=== PATIENT | male | born 1995 | race Caucasian/White ===

== ENCOUNTER 2016-05-09 14:17 | Inpatient (IN) | payer OTHER ==
[2016-05-09 15:54] VITALS: BMI 24.4
--- NOTE | 2016-05-09 16:29 | HP ---
Admission ROS [facility] - [facility] Chief Complaint: i want to go to rehab Allergies/Adverse Reactions: Allergies Allergy/AdvReac Type Severity Reaction Status Date / Time diphenhydramine HCl Allergy Severe Swelling Verified 05/09/16 16:18 [From Benadryl] Penicillins Allergy Severe Rash Verified 05/09/16 16:18 History of Present Illness: 20 years old male with long history of opiate nicotine dependence, history of eczema denies mental illness, longest sobriety months is admitted to rehab Exam Limitations: No Limitations - Ebola screening Have you traveled outside of the country in the last 21 days: No Have you had contact with anyone from an Ebola affected area: No Have you been sick,other than usual withdrawal symptoms: No Do you have a fever: No - Review of Systems Constitutional: Weight Stable EENT: reports: No Symptoms Reported Respiratory: reports: No Symptoms reported Cardiac: reports: No Symptoms Reported GI: reports: No Symptoms Reported : reports: No Symptoms Reported Musculoskeletal: reports: No Symptoms Reported Integumentary: reports: No Symptoms Reported Neuro: reports: No Symptoms reported Endocrine: reports: No Symptoms Reported Hematology: reports: No Symptoms Reported Psychiatric: reports: Judgement Intact, Mood/Affect Appropiate, Orientated x3 Other Systems: Reviewed and Negative Patient History - Patient Medical History Hx Anemia: No Hx Asthma: Yes (CHILDHOOD ASTHMA) Hx Chronic Obstructive Pulmonary Disease (COPD): No Hx Cancer: No Hx Cardiac Disorders: No Hx Congestive Heart Failure: No Hx Hypertension: No Hx Hypercholesterolemia: No Hx Pacemaker: No HX Cerebrovascular Accident: No Hx Seizures: No Hx Dementia: No Hx Diabetes: No Hx Gastrointestinal Disorders: No Hx Liver Disease: No Hx Genitourinary Disorders: No Hx Sexually Transmitted Disorders: No Hx Renal Disease (ESRD): No Hx Thyroid Disease: No Hx Human Immunodeficiency Virus (HIV): No (12/21 LAST NEGATIVE) Hx Hepatitis C: No Hx Depression: No Hx Suicide Attempt: No Hx Bipolar Disorder: No Hx Schizophrenia: No - Patient Surgical History Past Surgical History: No - PPD History Previous Implant?: Yes Documented Results: Negative w/proof Implanted On Prior [facility] Admission?: Yes Date: 03/06/16 PPD to be Administered?: No - Smoking Cessation Smoking history: Current every day smoker Have you smoked in the past 12 months: Yes Aproximately how many cigarettes per day: 20 Cigars Per Day: 0 Hx Chewing Tobacco Use: No Initiated information on smoking cessation: Yes 'Breaking Loose' booklet given: 05/09/16 - Substance & Tx. History Hx Alcohol Use: No Hx Substance Use: Yes Substance Use Type: Opiates Hx Substance Use Treatment: Yes - Substances Abused Heroin Route: Inhalation Frequency: Daily Amount used: 10 bags Age of first use: 19 Date of Last Use: 04/06/16 Family Disease History - Family Disease History Family Disease History: Other: Father (hepatitis c treated) Admission Physical Exam [facility] - Vital Signs Vital Signs: Vital Signs - 24 hr 05/09/16 15:52 Temperature 97.6 F Pulse Rate 95 H Respiratory 18 Rate Blood Pressure 136/72 - Physical General Appearance: Yes: Nourished, Appropriately Dressed, Tremorous, Irritable , Sweating, Anxious HEENTM: Yes: Hearing grossly Normal, Normal ENT Inspection, Normocephalic, Normal Voice Respiratory: Yes: Chest Non-Tender, Lungs Clear, Normal Breath Sounds, No Respiratory Distress, No Accessory Muscle Use Neck: Yes: Supple, Trachea in good position Breast: Yes: Breasts Symetrical Cardiology: Yes: Regular Rhythm, Regular Rate, S1, S2 Abdominal: Yes: Non Tender, Soft Genitourinary: Yes: Within Normal Limits Back: Yes: Normal Inspection Musculoskeletal: Yes: full range of Motion, Gait Steady Extremities: Yes: Normal Range of Motion, Non-Tender, Other (feet) Neurological: Yes: Fully Oriented, Alert, Motor Strength 5/5, Normal Mood/Affect , Normal Response Integumentary: Yes: Warm Lymphatic: Yes: Within Normal Limits - Diagnostic (1) Asthma Current Visit: Yes Status: Chronic Qualifiers: Asthma severity: mild intermittent Asthma complication type: uncomplicated Qualified Code(s): J45.20 - Mild intermittent asthma, uncomplicated Comment: last ventolin "months" ago (2) Nicotine dependence Current Visit: Yes Status: Acute Qualifiers: Nicotine product type: cigarettes Substance use status: in withdrawal Qualified Code(s): F17.213 - Nicotine dependence, cigarettes, with withdrawal (3) Opioid dependence with withdrawal Current Visit: Yes Status: Acute (4) Eczema Current Visit: Yes Status: Chronic Qualifiers: Eczema type: other Qualified Code(s): L30.8 - Other specified dermatitis Comment: feet Cleared for Admission [facility] - Detox or Rehab [facility] Level of Care: Observation Bed Claeared for Rehab Admission: Yes [facility] Breath Alcohol Content Breath Alcohol Content: 0 Urine Drug Screen - Results Drug Screen Negative: Yes
[2016-05-09] MEDS ORDERED: P-EPHED 60MG/TRIPROLIDI 2.5MG TABLET PO PRN (16:31)
[2016-05-09] MEDS ORDERED: LOPERAMIDE HCL 2 MG CAPSULE PO PRN (16:31)
[2016-05-09] MEDS ORDERED: MAGNESIUM HYDROX 2400MG/30ML ORAL SUSPENSION 30 ML CUP PO PRN (16:31)
[2016-05-09] MEDS ORDERED: MAG HYDROX/AL HYDROX/SIMETH 30 ML UNIT-DOSE CUP PO PRN (16:31)
[2016-05-09] MEDS ORDERED: NICOTINE POLACRILEX 2 MG GUM BUC PRN (16:31)
[2016-05-09] MEDS ORDERED: MAGNESIUM CITRATE 300 ML BOTTLE PO PRN (16:31)
[2016-05-09] MEDS ORDERED: COLLOIDAL OATMEAL 1 BAR EACH TP PRN (16:36)
[2016-05-09] MEDS ORDERED: ALBUTEROL SO4 6.7 GM HFA INHALER IH PRN (16:44)
--- NOTE | 2016-05-09 20:19 | PN ---
S Progress Note Note: received nurse call requests vistaril for anxiousness patient is allergic to Benadryl, may have negative consequence patient can be seen by psychiatrist continue rehab
[2016-05-09 20:39] LABS: URINE APPEARANCE CLEAR; URINE BILIRUBIN NEGATIVE (NEGATIVE); URINE BLOOD NEGATIVE (NEGATIVE); URINE COLOR LTYELLOW; URINE GLUCOSE (UA) NEGATIVE (NEGATIVE); URINE KETONE NEGATIVE (NEGATIVE); URINE LEUK ESTERASE NEGATIVE (NEGATIVE); URINE NITRITE NEGATIVE (NEGATIVE); URINE PROTEIN NEGATIVE (NEGATIVE); URINE UROBILINOGEN NEGATIVE E.U./dl (0.2-1.0)
--- NOTE | 2016-05-09 20:39 | PN ---
S Progress Note Note: received pharmacist call patient allergic to Benadryl can not have ephed discontinue ephed continue rehab
[2016-05-09] MEDS: THIAMINE HCL 100 MG TABLET (FP) PO SCH (21:20)
[2016-05-09] MEDS: MINERAL OIL/PETROLAT/WATER TOPICAL CREAM 113 GM JAR TP SCH (21:21)
[2016-05-09] MEDS ORDERED: hydrOXYzine PAMOATE 50 MG CAPSULE (FP) PO ONE (21:30)
--- NOTE | 2016-05-09 21:30 | PN ---
S Progress Note Note: INFORMED PT REQUESTING VISTARIL FOR ANXIETY, RESTLESSNESS. STATES HAS TAKEN BEFORE W/O RXN. NOTED ON LAST ADMISSION PT PRESCRIBED BOTH BENADRYL AND VISTARIL DESPITE HIS CLAIMS THAT HE IS ALLERGIC TO BENADRYL NOW. WILL GIVEN VISTARIL 50 MG X 1 DOSE NOW.
[2016-05-10] MEDS: hydrOXYzine PAMOATE 50 MG CAPSULE (FP) PO PRN (08:27)
[2016-05-10] MEDS: NICOTINE 21 MG/24 HOURS TOPICAL PATCH TD SCH (09:49)
[2016-05-10] MEDS: PRENATAL VITAMINS W/ FOLIC ACID TABLET (FP) PO SCH (09:49)
[2016-05-10 13:33] LABS: MCHC 32.8 g/dl (32.0-35.9); MEAN CELL VOLUME 91.2 fl (80-96); MEAN PLT VOLUME 9.7 fl (7.5-11.1); PLATELET COUNT 190 K/MM3 (134-434); RDW 13.9 % (11.9-15.9); WHITE BLOOD COUNT 6.7 K/mm3 (4.0-10.0)
[2016-05-10 13:57] LABS: ALBUMIN 4.1 g/dl (3.4-5.0); ANION GAP 11 (8-16); CO2 26 mmol/L (21-32); GLUCOSE,RANDOM 76 mg/dL (74-106); SGOT/AST 38 U/L (15-37); SGPT/ALT 43 U/L (12-78)
[2016-05-10 13:59] LABS: ALK PHOS 89 U/L (45-117); BILIRUBIN,TOTAL 0.2 mg/dL (0.2-1.0); CALCIUM 9.8 mg/dL (8.5-10.1); CREATININE 0.8 mg/dL (0.7-1.3); TOT PROT 7.2 g/dl (6.4-8.2)
--- NOTE | 2016-05-10 14:16 | HP ---
Psychiatrist Admission - Data Date of interview: 05/10/16 Admission source: [facility]/[address] Identifying data: This is the first 5N inpatient rehabilitation admission for this 20 year old single male residing with his parents in [place]. Medical History: reports a good physical health Psychiatric History: eczema, smokes cigarettes 1 PPD. Physical/Sexual Abuse/Trauma History: denies history of sexual,physical and verbal abuse. Vital Signs: Vital Signs - 24 hr 05/09/16 05/09/16 05/10/16 15:52 18:15 00:49 Temperature 97.6 F 97.1 F L Pulse Rate 95 H 95 H Respiratory 18 18 18 Rate Blood Pressure 136/72 128/82 05/10/16 05/10/16 03:30 06:58 Temperature 97.4 F L Pulse Rate 66 Respiratory 18 16 Rate Blood Pressure 138/75 Allergies/Adverse Reactions: Allergies Allergy/AdvReac Type Severity Reaction Status Date / Time diphenhydramine HCl Allergy Severe Swelling Verified 05/09/16 16:18 [From Benadryl] Penicillins Allergy Severe Rash Verified 05/09/16 16:18 Date of last physical exam: 05/09/16 Concur with the findings of this exam: Yes - Substance Abuse/Tx History Hx Alcohol Use: No Substance Use Type: Heroin, Opiates (oxycodone, last use 03/22) Hx Substance Use Treatment: Yes (was in [facility] ) - Admission Criteria Previous failed treatment: Yes Poor recovery environment: Yes Comorbidities: No Lacks judgement: Yes Mental Status Exam - Mental Status Exam Alert and Oriented to: Time, Place, Person Cognitive Function: Grossly Intact Patient Appearance: Well Groomed Mood: Anxious Affect: Appropriate, Mood Congruent Patient Behavior: Appropriate, Cooperative Speech Pattern: Clear, Appropriate Voice Loudness: Normal Thought Process: Intact, Goal Oriented Thought Disorder: Not Present Hallucinations: Denies Suicidal Ideation: Denies Homicidal Ideation: Denies Insight/Judgement: Fair Sleep: Fair Appetite: Fair Muscle strength/Tone: Normal Gait/Station: Normal Psychiatric Findings - Problem List ([place] 1, 2,3) (1) Nicotine dependence Current Visit: Yes Status: Acute Qualifiers: Nicotine product type: cigarettes Substance use status: in withdrawal Qualified Code(s): F17.213 - Nicotine dependence, cigarettes, with withdrawal (2) Eczema Current Visit: Yes Status: Chronic Qualifiers: Eczema type: other Qualified Code(s): L30.8 - Other specified dermatitis Comment: feet (3) Opioid dependence Current Visit: Yes Status: Acute - Initial Treatment Plan Initial Treatment Plan: will monitor progress as needed.
[2016-05-10] MEDS: THIAMINE HCL 100 MG TABLET (FP) PO SCH (21:32)
[2016-05-10] MEDS: MINERAL OIL/PETROLAT/WATER TOPICAL CREAM 113 GM JAR TP SCH (21:32)
[2016-05-11] MEDS: PRENATAL VITAMINS W/ FOLIC ACID TABLET (FP) PO SCH (09:35)
[2016-05-11] MEDS: NICOTINE 21 MG/24 HOURS TOPICAL PATCH TD SCH (09:35)
[2016-05-11] MEDS: MINERAL OIL/PETROLAT/WATER TOPICAL CREAM 113 GM JAR TP SCH (21:47)
[2016-05-11] MEDS: THIAMINE HCL 100 MG TABLET (FP) PO SCH (21:48)
[2016-05-12] MEDS: NICOTINE 21 MG/24 HOURS TOPICAL PATCH TD SCH (10:01)
[2016-05-12] MEDS: PRENATAL VITAMINS W/ FOLIC ACID TABLET (FP) PO SCH (10:01)
[2016-05-12] MEDS: hydrOXYzine PAMOATE 50 MG CAPSULE (FP) PO PRN ×3 (10:04→23:43)
[2016-05-12] MEDS: IBUPROFEN 400 MG TABLET (FP) PO PRN (10:06)
[2016-05-12] MEDS: MINERAL OIL/PETROLAT/WATER TOPICAL CREAM 113 GM JAR TP SCH (21:24)
[2016-05-12] MEDS: THIAMINE HCL 100 MG TABLET (FP) PO SCH (21:24)
[2016-05-12] MEDS: ACETAMINOPHEN 325 MG TABLET (FP) PO PRN (21:24)
[2016-05-13] MEDS: PRENATAL VITAMINS W/ FOLIC ACID TABLET (FP) PO SCH (09:52)
[2016-05-13] MEDS: NICOTINE 21 MG/24 HOURS TOPICAL PATCH TD SCH (09:53)
--- NOTE | 2016-05-13 14:11 | EKG ---
Test Reason : Blood Pressure : / mmHG Vent. Rate : 066 BPM Atrial Rate : 066 BPM P-R Int : 140 ms QRS Dur : 088 ms QT Int : 406 ms P-R-T Axes : 043 060 047 degrees QTc Int : 425 ms NORMAL SINUS RHYTHM WITH SINUS ARRHYTHMIA NORMAL ECG NO PREVIOUS ECGS AVAILABLE Confirmed by ALLISON CONNELL MD ([id number]) on 05/13/2016 2:10:53 PM Referred By: Colleen Huffman Confirmed By:ALLISON CONNELL MD
[2016-05-13] MEDS: THIAMINE HCL 100 MG TABLET (FP) PO SCH (21:26)
[2016-05-13] MEDS: hydrOXYzine PAMOATE 50 MG CAPSULE (FP) PO PRN (21:27)
[2016-05-13] MEDS: MINERAL OIL/PETROLAT/WATER TOPICAL CREAM 113 GM JAR TP SCH (22:20)
[2016-05-14] MEDS: hydrOXYzine PAMOATE 50 MG CAPSULE (FP) PO PRN (06:10)
[2016-05-14] MEDS: NICOTINE 21 MG/24 HOURS TOPICAL PATCH TD SCH (09:56)
[2016-05-14] MEDS: PRENATAL VITAMINS W/ FOLIC ACID TABLET (FP) PO SCH (09:56)
[2016-05-14] MEDS: MINERAL OIL/PETROLAT/WATER TOPICAL CREAM 113 GM JAR TP SCH (21:39)
[2016-05-14] MEDS: THIAMINE HCL 100 MG TABLET (FP) PO SCH (21:39)
[2016-05-15] MEDS: NICOTINE 21 MG/24 HOURS TOPICAL PATCH TD SCH (09:56)
[2016-05-15] MEDS: PRENATAL VITAMINS W/ FOLIC ACID TABLET (FP) PO SCH (09:57)
[2016-05-15] MEDS: hydrOXYzine PAMOATE 50 MG CAPSULE (FP) PO PRN (18:48)
[2016-05-15] MEDS: THIAMINE HCL 100 MG TABLET (FP) PO SCH (21:39)
[2016-05-15] MEDS: MINERAL OIL/PETROLAT/WATER TOPICAL CREAM 113 GM JAR TP SCH (21:40)
[2016-05-16] MEDS: PRENATAL VITAMINS W/ FOLIC ACID TABLET (FP) PO SCH (09:26)
[2016-05-16] MEDS: NICOTINE 21 MG/24 HOURS TOPICAL PATCH TD SCH (09:26)
[2016-05-16] MEDS: hydrOXYzine PAMOATE 50 MG CAPSULE (FP) PO PRN ×2 (09:27→21:19)
[2016-05-16] MEDS: THIAMINE HCL 100 MG TABLET (FP) PO SCH (21:18)
[2016-05-16] MEDS: MINERAL OIL/PETROLAT/WATER TOPICAL CREAM 113 GM JAR TP SCH (21:19)
[2016-05-17] MEDS: hydrOXYzine PAMOATE 50 MG CAPSULE (FP) PO PRN ×2 (06:32→12:34)
[2016-05-17] MEDS: NICOTINE 21 MG/24 HOURS TOPICAL PATCH TD SCH (09:37)
[2016-05-17] MEDS: PRENATAL VITAMINS W/ FOLIC ACID TABLET (FP) PO SCH (09:37)
[2016-05-17] MEDS: THIAMINE HCL 100 MG TABLET (FP) PO SCH (21:43)
[2016-05-17] MEDS: MINERAL OIL/PETROLAT/WATER TOPICAL CREAM 113 GM JAR TP SCH (21:43)
[2016-05-18] MEDS: MENTHOL/PHENOL 1 EACH UD MM PRN ×3 (06:37→17:49)
[2016-05-18] MEDS: guaiFENesin/D-METHORPHAN HB 10 ML UNIT-DOSE CUPS PO PRN ×2 (06:38→12:43)
[2016-05-18] MEDS: hydrOXYzine PAMOATE 50 MG CAPSULE (FP) PO PRN ×3 (08:30→23:31)
[2016-05-18] MEDS: ACETAMINOPHEN 325 MG TABLET (FP) PO PRN (08:30)
[2016-05-18] MEDS: PRENATAL VITAMINS W/ FOLIC ACID TABLET (FP) PO SCH (09:42)
[2016-05-18] MEDS: NICOTINE 21 MG/24 HOURS TOPICAL PATCH TD SCH (09:42)
[2016-05-18] MEDS: IBUPROFEN 400 MG TABLET (FP) PO PRN (17:47)
[2016-05-18] MEDS: THIAMINE HCL 100 MG TABLET (FP) PO SCH (21:47)
[2016-05-18] MEDS: MINERAL OIL/PETROLAT/WATER TOPICAL CREAM 113 GM JAR TP SCH (21:47)
[2016-05-19] MEDS: guaiFENesin/D-METHORPHAN HB 10 ML UNIT-DOSE CUPS PO PRN (06:45)
[2016-05-19] MEDS: hydrOXYzine PAMOATE 50 MG CAPSULE (FP) PO PRN ×3 (06:45→21:34)
[2016-05-19] MEDS: MENTHOL/PHENOL 1 EACH UD MM PRN (06:46)
[2016-05-19] MEDS: PRENATAL VITAMINS W/ FOLIC ACID TABLET (FP) PO SCH (09:39)
[2016-05-19] MEDS: NICOTINE 21 MG/24 HOURS TOPICAL PATCH TD SCH (09:39)
[2016-05-19] MEDS: ACETAMINOPHEN 325 MG TABLET (FP) PO PRN (09:41)
[2016-05-19] MEDS: THIAMINE HCL 100 MG TABLET (FP) PO SCH (21:34)
[2016-05-19] MEDS: MINERAL OIL/PETROLAT/WATER TOPICAL CREAM 113 GM JAR TP SCH (21:37)
[2016-05-20] MEDS: NICOTINE 21 MG/24 HOURS TOPICAL PATCH TD SCH (09:32)
[2016-05-20] MEDS: PRENATAL VITAMINS W/ FOLIC ACID TABLET (FP) PO SCH (09:32)
[2016-05-20] MEDS ORDERED: FUROSEMIDE 40 MG TABLET (FP) PO ONE (13:45)
[2016-05-20] MEDS: THIAMINE HCL 100 MG TABLET (FP) PO SCH (21:53)
[2016-05-20] MEDS: MINERAL OIL/PETROLAT/WATER TOPICAL CREAM 113 GM JAR TP SCH (21:53)
[2016-05-21] MEDS: PRENATAL VITAMINS W/ FOLIC ACID TABLET (FP) PO SCH (09:46)
[2016-05-21] MEDS: FUROSEMIDE 20 MG TABLET (FP) PO SCH (09:46)
[2016-05-21] MEDS: NICOTINE 21 MG/24 HOURS TOPICAL PATCH TD SCH (09:47)
[2016-05-21] MEDS ORDERED: FUROSEMIDE 20 MG TABLET (FP) PO SCH (10:00)
[2016-05-21] MEDS: THIAMINE HCL 100 MG TABLET (FP) PO SCH (21:08)
[2016-05-21] MEDS: MINERAL OIL/PETROLAT/WATER TOPICAL CREAM 113 GM JAR TP SCH (21:09)
[2016-05-21] MEDS: hydrOXYzine PAMOATE 50 MG CAPSULE (FP) PO PRN (21:09)
[2016-05-22] MEDS: PRENATAL VITAMINS W/ FOLIC ACID TABLET (FP) PO SCH (09:39)
[2016-05-22] MEDS: NICOTINE 21 MG/24 HOURS TOPICAL PATCH TD SCH (09:39)
[2016-05-22] MEDS: FUROSEMIDE 20 MG TABLET (FP) PO SCH (09:41)
[2016-05-22] MEDS: hydrOXYzine PAMOATE 50 MG CAPSULE (FP) PO PRN ×2 (09:42→21:26)
[2016-05-22] MEDS: THIAMINE HCL 100 MG TABLET (FP) PO SCH (21:26)
[2016-05-22] MEDS: MINERAL OIL/PETROLAT/WATER TOPICAL CREAM 113 GM JAR TP SCH (21:26)
[2016-05-23] MEDS: PRENATAL VITAMINS W/ FOLIC ACID TABLET (FP) PO SCH (09:39)
[2016-05-23] MEDS: FUROSEMIDE 20 MG TABLET (FP) PO SCH (09:39)
[2016-05-23] MEDS: NICOTINE 21 MG/24 HOURS TOPICAL PATCH TD SCH (09:39)
[2016-05-23] MEDS: hydrOXYzine PAMOATE 50 MG CAPSULE (FP) PO PRN ×2 (09:40→21:15)
[2016-05-23] MEDS: MINERAL OIL/PETROLAT/WATER TOPICAL CREAM 113 GM JAR TP SCH (21:15)
[2016-05-23] MEDS: THIAMINE HCL 100 MG TABLET (FP) PO SCH (21:15)
[2016-05-24] MEDS: hydrOXYzine PAMOATE 50 MG CAPSULE (FP) PO PRN ×3 (06:03→20:48)
[2016-05-24] MEDS: PRENATAL VITAMINS W/ FOLIC ACID TABLET (FP) PO SCH (09:33)
[2016-05-24] MEDS: NICOTINE 21 MG/24 HOURS TOPICAL PATCH TD SCH (09:34)
[2016-05-24] MEDS: FUROSEMIDE 20 MG TABLET (FP) PO SCH (09:34)
[2016-05-24] MEDS ORDERED: HYDROCORTISONE VALERATE 0.2% CREAM 15 G TUBE TP PRN (11:34)
--- NOTE | 2016-05-24 11:36 | PN ---
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
[2016-05-24] MEDS: THIAMINE HCL 100 MG TABLET (FP) PO SCH (22:05)
[2016-05-24] MEDS: HYDROCORTISONE 1% TOPICAL CREAM 30 GM TUBE TP SCH (22:05)
[2016-05-24] MEDS: MINERAL OIL/PETROLAT/WATER TOPICAL CREAM 113 GM JAR TP SCH (22:05)
[2016-05-25] MEDS: PRENATAL VITAMINS W/ FOLIC ACID TABLET (FP) PO SCH (09:46)
[2016-05-25] MEDS: HYDROCORTISONE 1% TOPICAL CREAM 30 GM TUBE TP SCH ×2 (09:47→21:38)
[2016-05-25] MEDS: FUROSEMIDE 20 MG TABLET (FP) PO SCH (09:47)
[2016-05-25] MEDS: NICOTINE 21 MG/24 HOURS TOPICAL PATCH TD SCH (09:47)
[2016-05-25] MEDS: hydrOXYzine PAMOATE 50 MG CAPSULE (FP) PO PRN (09:48)
[2016-05-25] MEDS: THIAMINE HCL 100 MG TABLET (FP) PO SCH (21:38)
[2016-05-25] MEDS: MINERAL OIL/PETROLAT/WATER TOPICAL CREAM 113 GM JAR TP SCH (21:38)
[2016-05-26] MEDS: PRENATAL VITAMINS W/ FOLIC ACID TABLET (FP) PO SCH (09:58)
[2016-05-26] MEDS: NICOTINE 21 MG/24 HOURS TOPICAL PATCH TD SCH (09:58)
[2016-05-26] MEDS: hydrOXYzine PAMOATE 50 MG CAPSULE (FP) PO PRN ×2 (09:58→22:33)
[2016-05-26] MEDS: FUROSEMIDE 20 MG TABLET (FP) PO SCH (09:59)
[2016-05-26] MEDS: HYDROCORTISONE 1% TOPICAL CREAM 30 GM TUBE TP SCH ×2 (09:59→21:39)
[2016-05-26] MEDS: MINERAL OIL/PETROLAT/WATER TOPICAL CREAM 113 GM JAR TP SCH (21:38)
[2016-05-26] MEDS: THIAMINE HCL 100 MG TABLET (FP) PO SCH (21:39)
[2016-05-27] MEDS: HYDROCORTISONE 1% TOPICAL CREAM 30 GM TUBE TP SCH ×2 (09:31→22:08)
[2016-05-27] MEDS: FUROSEMIDE 20 MG TABLET (FP) PO SCH (09:31)
[2016-05-27] MEDS: PRENATAL VITAMINS W/ FOLIC ACID TABLET (FP) PO SCH (09:31)
[2016-05-27] MEDS: hydrOXYzine PAMOATE 50 MG CAPSULE (FP) PO PRN ×2 (09:32→22:07)
[2016-05-27] MEDS: NICOTINE 21 MG/24 HOURS TOPICAL PATCH TD SCH (09:32)
[2016-05-27] MEDS: THIAMINE HCL 100 MG TABLET (FP) PO SCH (22:07)
[2016-05-27] MEDS: MINERAL OIL/PETROLAT/WATER TOPICAL CREAM 113 GM JAR TP SCH (22:08)
[2016-05-28] MEDS: PRENATAL VITAMINS W/ FOLIC ACID TABLET (FP) PO SCH (09:33)
[2016-05-28] MEDS: hydrOXYzine PAMOATE 50 MG CAPSULE (FP) PO PRN (09:34)
[2016-05-28] MEDS: HYDROCORTISONE 1% TOPICAL CREAM 30 GM TUBE TP SCH ×2 (09:34→21:48)
[2016-05-28] MEDS: FUROSEMIDE 20 MG TABLET (FP) PO SCH (09:34)
[2016-05-28] MEDS: NICOTINE 21 MG/24 HOURS TOPICAL PATCH TD SCH (09:35)
[2016-05-28] MEDS: MINERAL OIL/PETROLAT/WATER TOPICAL CREAM 113 GM JAR TP SCH (21:48)
[2016-05-28] MEDS: THIAMINE HCL 100 MG TABLET (FP) PO SCH (21:48)
[2016-05-29] MEDS: FUROSEMIDE 20 MG TABLET (FP) PO SCH (09:39)
[2016-05-29] MEDS: PRENATAL VITAMINS W/ FOLIC ACID TABLET (FP) PO SCH (09:39)
[2016-05-29] MEDS: HYDROCORTISONE 1% TOPICAL CREAM 30 GM TUBE TP SCH ×2 (09:40→21:48)
[2016-05-29] MEDS: NICOTINE 21 MG/24 HOURS TOPICAL PATCH TD SCH (09:40)
[2016-05-29] MEDS: hydrOXYzine PAMOATE 50 MG CAPSULE (FP) PO PRN ×2 (09:41→22:11)
--- NOTE | 2016-05-29 14:34 | PN ---
Psychiatric Progress Note Vital Signs: Vital Signs Period Temp Pulse Resp BP Sys/Fernández Pulse Ox Last 24 Hr 97.5 F 59-78 12-18 132/67 Date of Session: 05/29/16 Chief Complaint:: discharge visit HPI: Patient addressed Opioid and Cannabis dependence with no psychiatric comorbidity. ROS: Significant for Eczema,BA. Current Medications: Active Medications Generic Name Dose Route Start Last Admin Trade Name Freq PRN Reason Stop Dose Admin Acetaminophen 650 mg 05/09/16 16:31 05/19/16 09:41 Tylenol - PO 650 mg Q4H PRN Administration PAIN Al Hydroxide/Mg Hydroxide 30 ml 05/09/16 16:31 Mylanta Oral Suspension - PO Q6H PRN DYSPEPSIA Albuterol Sulfate 0 puff 05/09/16 16:44 Ventolin Hfa Inhaler - IH Q4H PRN SHORT OF BREATH/WHEEZING Colloidal Oatmeal 1 applic 05/09/16 16:36 Aveeno Soap - TP DAILY PRN HYGEINE Eucalyptus/Menthol/Phenol/Sorbitol 1 each 05/09/16 16:31 05/19/16 06:46 Cepastat Lozenge - MM 1 each Q4H PRN Administration SORE THROAT Furosemide 20 mg 05/21/16 10:00 05/29/16 09:39 Lasix - PO Not Given DAILY BAO Guaifenesin 10 ml 05/09/16 16:31 05/19/16 06:45 Robitussin Dm - PO 10 ml Q6H PRN Administration COUGH Hydrocortisone 1 applic 05/24/16 22:00 05/29/16 09:40 Hytone 1% Cream - TP Not Given BID BAO Hydroxyzine Pamoate 50 mg 05/10/16 06:45 05/29/16 09:41 Vistaril - PO 50 mg Q6H PRN Administration FOR ITCHING Ibuprofen 400 mg 05/09/16 16:31 05/18/16 17:47 Motrin - PO 400 mg Q6H PRN Administration SEVERE PAIN Loperamide HCl 4 mg 05/09/16 16:31 Imodium - PO Q6H PRN DIARRHEA Magnesium Citrate 300 ml 05/09/16 16:31 Citroma - PO Q48H PRN CONSTIPATION Magnesium Hydroxide 30 ml 05/09/16 16:31 Milk Of Magnesia - PO DAILY PRN CONSTIPATION Multi-Ingredient Lotion 1 applic 05/09/16 22:00 05/28/16 21:48 Eucerin (Small Jar) - TP Not Given HS BAO Nicotine 21 mg 05/10/16 10:00 05/29/16 09:40 Nicoderm Patch - TD Not Given DAILY BAO Nicotine Polacrilex 2 mg 05/09/16 16:31 05/29/16 11:19 Nicorette Gum - BUC 2 mg Q2H PRN Administration NICOTINE REPLACEMENT RX Multivit/Folic Acid/Iron 1 tab 05/10/16 10:00 05/29/16 09:39 Vitamins ([facility]) - PO 1 tab DAILY BAO Administration Thiamine HCl 100 mg 05/09/16 22:00 05/28/16 21:48 Vitamin B1 - PO Not Given HS [facility] Current Side Effect: No Lab tests ordered: No Lab tests reviewed: Yes Provider note:: Patient will be discharged tomorrow 05/30/16.He has met his treatment goals and will continue to address his issues on outpatient basis at [facility] program in [facility].Psychotherapy provided focusing on relapse prevention including discussion of support,coping skills utlization to maintain recovery. Patient is stable for discharge tomorrow 05/30/16. Total face to face time:: 30 Mental Status Exam - Mental Status Exam Alert and Oriented to: Time, Place, Person Cognitive Function: Grossly Intact Patient Appearance: Well Groomed Mood: Euthymic Affect: Mood Congruent Patient Behavior: Cooperative Speech Pattern: Clear Voice Loudness: Normal Thought Process: Goal Oriented Thought Disorder: Not Present Hallucinations: Denies Suicidal Ideation: Denies Homicidal Ideation: Denies Insight/Judgement: Fair Sleep: Well Appetite: Good Muscle strength/Tone: Normal Gait/Station: Normal Psychiatric Treatment Plan - Problem List (1) Nicotine dependence Current Visit: Yes Qualifiers: Nicotine product type: cigarettes Substance use status: in withdrawal Qualified Code(s): F17.213 - Nicotine dependence, cigarettes, with withdrawal (2) Opioid dependence Current Visit: Yes (3) Asthma Current Visit: Yes Qualifiers: Asthma severity: mild intermittent Asthma complication type: uncomplicated Qualified Code(s): J45.20 - Mild intermittent asthma, uncomplicated Comment: last ventolin "months" ago (4) Eczema Current Visit: Yes Qualifiers: Eczema type: other Qualified Code(s): L30.8 - Other specified dermatitis Comment: feet (5) Cannabis dependence Current Visit: No
[2016-05-29] MEDS: MINERAL OIL/PETROLAT/WATER TOPICAL CREAM 113 GM JAR TP SCH (21:48)
[2016-05-29] MEDS: THIAMINE HCL 100 MG TABLET (FP) PO SCH (21:49)
[2016-05-30 06:49] VITALS: BP 115/84; PULSE 87; TEMP 98
[2016-05-30] MEDS: PRENATAL VITAMINS W/ FOLIC ACID TABLET (FP) PO SCH (09:56)
[2016-05-30] MEDS: NICOTINE 21 MG/24 HOURS TOPICAL PATCH TD SCH (09:56)
[2016-05-30] MEDS: FUROSEMIDE 20 MG TABLET (FP) PO SCH (09:56)
[2016-05-30] MEDS: HYDROCORTISONE 1% TOPICAL CREAM 30 GM TUBE TP SCH (09:56)
== END 2016-05-30 08:15 | disposition home or self-care (01) | DRG 895 ==
LOC: YASAS 14:17 → Y5N 16:40
PROVIDERS: ADMIT Psychiatry & Neurology Psychiatry; ATTEND Psychiatry & Neurology Psychiatry
PROC: HZ42ZZZ Group Counseling for Substance Abuse Treatment, Cognitive-Behavioral (ICD-10-PCS; principal; 2016-05-09)
DX: F11.20 Opioid dependence, uncomplicated (principal); F12.20 Cannabis dependence, uncomplicated; F17.210 Nicotine dependence, cigarettes, uncomplicated; J45.20 Mild intermittent asthma, uncomplicated; L30.8 Other specified dermatitis
CPT/HCPCS: 36415; 80053; 81003; 85027; 86593; 93005; 93010

== ENCOUNTER 2016-07-10 17:59 | Emergency (ER) | payer OTHER ==
[2016-07-10 18:03] VITALS: BP 153/85; PULSE 81; TEMP 98; BMI 26.4
--- NOTE | 2016-07-10 20:04 | PDOC ---
History of Present Illness - General Chief Complaint: Cold Symptoms Stated Complaint: COLD SYMPTOMS Time Seen by Provider: 07/10/16 20:02 History Source: Patient Exam Limitations: No Limitations - History of Present Illness Initial Comments: CHIEF COMPLAINT: 21 y/o afebrile male with PMH opioid dependence c/o sore throat x 5 days. HISTORY OF PRESENT ILLNESS: The patient states he has had 5 days of sore throat with fever. He went to another ER 4 days ago, was swabbed for strep and it was positive. They discharged him with a zpack. He states he's on day 4 and his symptoms are worse. He can barely swallow liquids. Vital signs on arrival are within normal limits. REVIEW OF SYSTEMS: GENERAL/CONSTITUTIONAL: +fever/chills. No weakness. No weight change. HEAD, EYES, EARS, NOSE AND THROAT: No change in vision. No ear pain or discharge. +sore throat. CARDIOVASCULAR: No chest pain or shortness of breath. RESPIRATORY: No cough, wheezing, or hemoptysis. GASTROINTESTINAL: No abd pain, nausea, vomiting, diarrhea. GENITOURINARY: No dysuria, frequency, or change in urination. MUSCULOSKELETAL: No joint or muscle swelling or pain. No neck or back pain. SKIN: No rash or easy bruising. NEUROLOGIC: No headache, vertigo, loss of consciousness, or loss of sensation. PHYSICAL EXAM: GENERAL: The patient is awake, alert, and fully oriented, in no acute distress. He is non toxic but ill appearing. The patient can handle his own secretions. HEAD: Normal with no signs of trauma. NECK: Very tender anterior cervical lymphadenopathy. ENT: Pupils equal, round and reactive to light, extraocular movements intact, sclera anicteric, conjunctiva clear. 2+ erythematous tonsils with visible exudate b/l. Left tonsil >R with left peritonsilar abscess. Swelling to soft palate on left side with uvula deviation towards left tonsil. No trismus. No muffled voice. LUNGS: Clear to auscultation bilaterally. Normal excursion. No respiratory distress or use of accessory muscles. CV: RRR, S1/S2, no MRG. Cap refill < 2 sec. ABDOMEN: Soft, non-distended, non-tender even to deep palpation, no hepatomegaly or splenomegaly, no masses. EXTREMITIES: Normal range of motion, no edema. NEUROLOGICAL: Normal speech, normal gait. CN II-XII grossly intact. PSYCH: Normal mood, normal affect. SKIN: Warm, dry, normal turgor, no rashes or lesions noted. Past History - Past Medical History Allergies/Adverse Reactions: Allergies Allergy/AdvReac Type Severity Reaction Status Date / Time diphenhydramine HCl Allergy Severe Swelling Verified 07/10/16 18:03 [From Benadryl] Penicillins Allergy Severe Rash Verified 07/10/16 18:03 Home Medications: Ambulatory Orders Albuterol Sulfate Inhaler - [Ventolin HFA Inhaler -] 0 puff IH Q4H PRN #1 inhaler 05/29/16 Clindamycin [Cleocin -] 300 mg PO Q6H #40 capsule 07/10/16 Prednisone [Deltasone -] 40 mg PO DAILY #6 tablet 07/10/16 Anemia: No Asthma: No Cancer: No Cardiac Disorders: No CVA: No COPD: No CHF: No Dementia: No Diabetes: No GI Disorders: No Disorders: No HTN: No Hypercholesterolemia: No Kidney Stones: No Liver Disease: No Suicide Attempt (Hx): No Seizures: No Thyroid Disease: No - Surgical History Abdominal Surgery: No Appendectomy: No Cardiac Surgery: No Cholecystectomy: No Lung Surgery: No Neurologic Surgery: No Orthopedic Surgery: No - Reproductive History Testicular Surgery: No - Psycho/Social/Smoking Cessation Hx Anxiety: No Suicidal Ideation: No Smoking History: Current every day smoker Have you smoked in the past 12 months: Yes Number of Cigarettes Smoked Daily: 20 Cigars Per Day: 0 Information on smoking cessation initiated: No 'Breaking Loose' booklet given: 05/09/16 Hx Alcohol Use: No Drug/Substance Use Hx: No Substance Use Type: Opiates Hx Substance Use Treatment: Yes (was in [facility] ) *Physical Exam - Vital Signs Last Vital Signs Temp Pulse Resp BP Pulse Ox 98.0 F 81 20 153/85 98 07/10/16 18:00 07/10/16 18:00 07/10/16 18:00 07/10/16 18:00 07/10/16 18:00 Medical Decision Making - Medical Decision Making A/P: 21 y/o male with peritonsilar abscess. Plan is as follows: 1. IV decadron 2. IV toradol 3. IV clindamycin 4. IV fluids 5. Reassess Pt states he feels much better after all medication. He is talking more normally. He is asking for something more for pain. Gave 2 percocet. Discussed the case with Dr. Orellana in the main ER. He suggests discharge with abx and prednisone with ENT f/u. Will discharge the patient to home with rx for clindamycin and 3 day course of prednisone. Suggested he gargle with warm salt water multiple times per day. Provided him with a referral for Dr. Olivares and instructed him to call in the morning to schedule an immediate follow up appointment. Instructed him to return to the ER immediately with any worsening or concerning symptoms, especially if he cannot handle his own secretions. Instructed him to drink lots of fluids and eat only soft foods until symptoms improve. The patient verbalizes understanding of all instructions, has no further questions and is awaiting discharge. *DC/Admit/Observation/Transfer Diagnosis at time of Disposition: Peritonsillar abscess - Discharge Dispostion Disposition: HOME Condition at time of disposition: Improved - Prescriptions Prescriptions: Clindamycin [Cleocin -] 300 mg PO Q6H #40 capsule Prednisone [Deltasone -] 40 mg PO DAILY #6 tablet - Referrals Referrals: Jovan Olivares MD [Staff Physician] - - Patient Instructions Printed Discharge Instructions: DI for Peritonsillar Abscess -- Adult Additional Instructions: Discharge Instructions: -2 prescriptions were sent to your pharmacy; please take as directed -Continue taking 600mg of Motrin every 6 hours to help with swelling -Call Dr. Olivares first thing tomorrow morning to schedule follow up appointment for as soon as possible -Gargle with warm salt water multiple times per day -Eat soft foods and drink plenty of liquids -Return to the ER immediately with any worsening or concerning symptoms.
[2016-07-10] MEDS ORDERED: DEXAMETHASONE SOD PHOSPHATE 10 MG/1 ML VIAL IVPUSH ONE (20:12)
[2016-07-10] MEDS ORDERED: CLINDAMYCIN 600MG PREMIX IVPB 50 ML IVPB ONE ×2 (20:12→20:26)
[2016-07-10] MEDS ORDERED: KETOROLAC TROMETHAMINE 30 MG/1 ML VIAL IVPUSH ONE (20:12)
[2016-07-10] MEDS ORDERED: DEXAMETHASONE SOD PHOSPHATE 10 MG/1 ML VIAL ONE (20:27)
[2016-07-10] MEDS ORDERED: KETOROLAC TROMETHAMINE 30 MG/1 ML VIAL ONE (20:27)
[2016-07-10] MEDS ORDERED: SODIUM CHLORIDE 1,000 ML IV STA (20:47)
[2016-07-10] MEDS ORDERED: OXYCODONE/APAP 5/325MG COMBO TABLET ONE (22:01)
[2016-07-10] MEDS ORDERED: OXYCODONE/APAP 5/325MG COMBO TABLET PO ONE (22:18)
== END 2016-07-10 22:50 | disposition home or self-care (01) ==
LOC: JERFT 17:59
PROC: 3E0337Z Introduction of Electrolytic and Water Balance Substance into Peripheral Vein, Percutaneous Approach (ICD-10-PCS; principal; 2016-07-10)
PROC: 3E03329 Introduction of Other Anti-infective into Peripheral Vein, Percutaneous Approach (ICD-10-PCS; 2016-07-10)
PROC: 3E0333Z Introduction of Anti-inflammatory into Peripheral Vein, Percutaneous Approach (ICD-10-PCS; 2016-07-10)
DX: J36 Peritonsillar abscess (principal); F17.210 Nicotine dependence, cigarettes, uncomplicated
CPT/HCPCS: 96361; 96365; 96375; 99281-25

== ENCOUNTER 2016-08-28 16:31 | Inpatient (IN) | payer OTHER ==
[2016-08-28 20:48] VITALS: BMI 25.7
--- NOTE | 2016-08-28 21:57 | HP ---
COWS - Scale Resting Pulse: 1= OR 81-100 Sweatin= Chills/Flushing Restless Observation: 3= Extraneous Movement Pupil Size: 0= Normal to Room Light Bone or Joint Aches: 2= Severe Diffuse Aches Runny Nose/ Eye Tearin= Runny Nose/Eyes GI Upset > 30mins: 1= Stomach Cramp Tremor Observation: 2= Slight Tremor Visible Yawning Observation: 0= None Anxiety or Irritability: 2=Irritable/Anxious Goose Flesh Skin: 0=Smooth Skin COWS Score: 14 Admission [facility] - HPI Chief Complaint: withdrawal sx Allergies/Adverse Reactions: Allergies Allergy/AdvReac Type Severity Reaction Status Date / Time diphenhydramine HCl Allergy Severe Swelling Verified 07/10/16 18:03 [From Benadryl] Penicillins Allergy Severe Rash Verified 07/10/16 18:03 History of Present Illness: 21 years old male with long history of opioid nicotine dependence has asthma denies mental illness is admitted to detox Exam Limitations: No Limitations - Ebola screening Have you traveled outside of the country in the last 21 days: No Have you had contact with anyone from an Ebola affected area: No Have you been sick,other than usual withdrawal symptoms: No Do you have a fever: No - Review of Systems Constitutional: Chills, Changes in sleep, Weight Stable EENT: reports: No Symptoms Reported Respiratory: reports: No Symptoms reported Cardiac: reports: No Symptoms Reported GI: reports: Nausea, Poor Fluid Intake, Abdominal cramping : reports: No Symptoms Reported Musculoskeletal: reports: Back Pain, Joint Pain, Muscle Pain, Neck Pain Integumentary: reports: No Symptoms Reported Neuro: reports: Tremors Endocrine: reports: No Symptoms Reported Hematology: reports: No Symptoms Reported Psychiatric: reports: Judgement Intact, Mood/Affect Appropiate, Orientated x3 Other Systems: Reviewed and Negative Patient History - Patient Medical History Hx Anemia: No Hx Asthma: Yes (by history) Hx Chronic Obstructive Pulmonary Disease (COPD): No Hx Cancer: No Hx Cardiac Disorders: No Hx Congestive Heart Failure: No Hx Hypertension: No Hx Hypercholesterolemia: No Hx Pacemaker: No HX Cerebrovascular Accident: No Hx Seizures: No Hx Dementia: No Hx Diabetes: No Hx Gastrointestinal Disorders: No Hx Liver Disease: No Hx Genitourinary Disorders: No Hx Sexually Transmitted Disorders: No Hx Renal Disease (ESRD): No Hx Thyroid Disease: No Hx Human Immunodeficiency Virus (HIV): No (12/21 LAST NEGATIVE) Hx Hepatitis C: No Hx Depression: No Hx Suicide Attempt: No Hx Bipolar Disorder: No Hx Schizophrenia: No - Patient Surgical History Past Surgical History: No Hx Neurologic Surgery: No Hx Cataract Extraction: No Hx Cardiac Surgery: No Hx Lung Surgery: No Hx Breast Surgery: No Hx Breast Biopsy: No Hx Abdominal Surgery: No Hx Appendectomy: No Hx Cholecystectomy: No Hx Genitourinary Surgery: No Hx Orthopedic Surgery: No - PPD History Previous Implant?: Yes Documented Results: Negative w/o proof Implanted On Prior R Admission?: Yes Date: 03/06/16 PPD to be Administered?: No - Smoking Cessation Smoking history: Current every day smoker Have you smoked in the past 12 months: Yes Aproximately how many cigarettes per day: 20 Cigars Per Day: 0 Hx Chewing Tobacco Use: No Initiated information on smoking cessation: Yes 'Breaking Loose' booklet given: 08/28/16 - Substance & Tx. History Hx Alcohol Use: No Hx Substance Use: Yes Substance Use Type: Opiates Hx Substance Use Treatment: Yes - Substances Abused Heroin Route: Inhalation Frequency: Daily Amount used: 10 bags Age of first use: 20 Date of Last Use: 08/28/16 Family Disease History - Family Disease History Family Disease History: Other: Father (hepatitis c treated) Admission Physical Exam S - Vital Signs Vital Signs: Vital Signs - 24 hr 08/28/16 20:42 Temperature 96.9 F L Pulse Rate 84 Respiratory 20 Rate Blood Pressure 114/78 - Physical General Appearance: Yes: Nourished, Appropriately Dressed, Mild Distress, Tremorous, Irritable, Sweating, Anxious HEENTM: Yes: Hearing grossly Normal, Normal ENT Inspection, Normocephalic, Normal Voice Respiratory: Yes: Chest Non-Tender, Lungs Clear, Normal Breath Sounds, No Respiratory Distress, No Accessory Muscle Use Neck: Yes: Supple, Trachea in good position Breast: Yes: Breasts Symetrical Cardiology: Yes: Regular Rhythm, Regular Rate, S1, S2 Abdominal: Yes: Non Tender, Soft Genitourinary: Yes: Within Normal Limits Back: Yes: Normal Inspection Musculoskeletal: Yes: full range of Motion, Gait Steady Extremities: Yes: Normal Inspection (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 [facility] discharged for opioid detox was doing well in suboxone program willing to return to the program), Normal Range of Motion, Non-Tender, Tremors Neurological: Yes: Fully Oriented, Alert, Motor Strength 5/5, Normal Mood/Affect , Normal Response Integumentary: Yes: Warm Lymphatic: Yes: Within Normal Limits - Diagnostic (1) Nicotine dependence Current Visit: Yes Status: Acute Qualifiers: Nicotine product type: cigarettes Substance use status: in withdrawal Qualified Code(s): F17.213 - Nicotine dependence, cigarettes, with withdrawal (2) Opioid dependence with withdrawal Current Visit: Yes Status: Acute (3) Asthma Current Visit: Yes Status: Chronic Qualifiers: Asthma severity: mild intermittent Asthma complication type: uncomplicated Qualified Code(s): J45.20 - Mild intermittent asthma, uncomplicated Comment: last ventolin "months" ago Cleared for Admission [facility] - Detox or Rehab [facility] Level of Care: Medically Managed Detox Regimen/Protocol: Methadone S Breath Alcohol Content Breath Alcohol Content: 0 Urine Drug Screen - Results Urine Drug Screen Results: OPI-Opiates
[2016-08-28] MEDS ORDERED: MAG HYDROX/AL HYDROX/SIMETH 30 ML UNIT-DOSE CUP PO PRN (22:05)
[2016-08-28] MEDS ORDERED: METHADONE HCL 10 MG TABLET (FOR DETOX USE ONLY) PO ONE ×2 (22:05→23:00)
[2016-08-28] MEDS ORDERED: IBUPROFEN 400 MG TABLET (FP) PO PRN (22:05)
[2016-08-28] MEDS ORDERED: ACETAMINOPHEN 325 MG TABLET (FP) PO PRN (22:05)
[2016-08-28] MEDS ORDERED: MAGNESIUM HYDROX 2400MG/30ML ORAL SUSPENSION 30 ML CUP PO PRN (22:05)
[2016-08-28] MEDS ORDERED: MAGNESIUM CITRATE 300 ML BOTTLE PO PRN (22:05)
[2016-08-28] MEDS ORDERED: MENTHOL/PHENOL 1 EACH UD MM PRN (22:05)
[2016-08-28] MEDS ORDERED: LOPERAMIDE HCL 2 MG CAPSULE PO PRN (22:05)
[2016-08-28] MEDS ORDERED: guaiFENesin/D-METHORPHAN HB 10 ML UNIT-DOSE CUPS PO PRN (22:05)
[2016-08-28] MEDS ORDERED: NICOTINE POLACRILEX 4 MG GUM BC PRN (22:05)
[2016-08-29] MEDS: diazePAM 5 MG TABLET PO PRN ×3 (05:36→22:43)
[2016-08-29 09:56] LABS: MCH 30.9 pg (25.7-33.7); MCHC 33.6 g/dl (32.0-35.9); MEAN CELL VOLUME 92.1 fl (80-96); MEAN PLT VOLUME 9.9 fl (7.5-11.1); PLATELET COUNT 160 K/MM3 (134-434); WHITE BLOOD COUNT 6.4 K/mm3 (4.0-10.0)
[2016-08-29] MEDS ORDERED: METHADONE HCL 10 MG TABLET (FOR DETOX USE ONLY) PO ONE (10:00)
[2016-08-29 10:04] LABS: ALBUMIN 3.1 g/dl (3.4-5.0); BILIRUBIN,TOTAL 0.3 mg/dL (0.2-1.0); SGOT/AST 31 U/L (15-37); SGPT/ALT 29 U/L (12-78)
[2016-08-29 10:08] LABS: ALK PHOS 68 U/L (45-117); ANION GAP 6 (8-16); CALCIUM 8.4 mg/dL (8.5-10.1); CO2 30 mmol/L (21-32); COCKROFT - GAULT 176.55; CREATININE 0.8 mg/dL (0.7-1.3); GLUCOSE,RANDOM 113 mg/dL (74-106); TOT PROT 5.3 g/dl (6.4-8.2)
[2016-08-29] MEDS: NICOTINE 21 MG/24 HOURS TOPICAL PATCH TD SCH (10:29)
[2016-08-29] MEDS: PRENATAL VITAMINS W/ FOLIC ACID TABLET (FP) PO SCH (10:29)
--- NOTE | 2016-08-29 11:03 | PN ---
BHS COWS - Scale Resting Pulse: 0= [place] 80 or Below Sweatin= Chills/Flushing Restless Observation: 3= Extraneous Movement Pupil Size: 2= Moderately Dilated Bone or Joint Aches: 4=Acute Joint/Muscle Pain Runny Nose/ Eye Tearin= Nasal Congestion GI Upset > 30mins: 1= Stomach Cramp Tremor Observation of Outstretched Hands: 2= Slight Tremor Visible Yawning Observation: 2= >3x During Session Anxiety or Irritability: 2=Irritable/Anxious Goose Flesh Skin: 0=Smooth Skin COWS Score: 18 BHS Progress Note (SOAP) Subjective: ANXIETY,SWEATS/CHILLS,FATIGUE. Objective: 08/29/16 11:03 Vital Signs Temperature 96.3 F L 08/29/16 09:13 Pulse Rate 71 08/29/16 09:13 Respiratory Rate 18 08/29/16 09:13 Blood Pressure 118/54 08/29/16 09:13 O2 Sat by Pulse Oximetry (%) Laboratory Last Values WBC 6.4 K/mm3 (4.0-10.0) 08/29/16 07:00 RBC 3.92 M/mm3 (4.00-5.60) L D 08/29/16 07:00 Hgb 12.1 GM/dL (11.7-16.9) D 08/29/16 07:00 Hct 36.1 % (35.4-49) D 08/29/16 07:00 MCV 92.1 fl (80-96) 08/29/16 07:00 MCHC 33.6 g/dl (32.0-35.9) 08/29/16 07:00 RDW 14.0 % (11.9-15.9) 08/29/16 07:00 Plt Count 160 K/MM3 (134-434) 08/29/16 07:00 MPV 9.9 fl (7.5-11.1) 08/29/16 07:00 Sodium 140 mmol/L (136-145) 08/29/16 07:00 Potassium 3.6 mmol/L (3.5-5.1) 08/29/16 07:00 Chloride 104 mmol/L (98-107) 08/29/16 07:00 Carbon Dioxide 30 mmol/L (21-32) 08/29/16 07:00 Anion Gap 6 (8-16) L 08/29/16 07:00 BUN 9 mg/dL (7-18) D 08/29/16 07:00 Creatinine 0.8 mg/dL (0.7-1.3) 08/29/16 07:00 Creat Clearance w eGFR > 60 (>60) 08/29/16 07:00 Random Glucose 113 mg/dL (74-106) H D 08/29/16 07:00 Calcium 8.4 mg/dL (8.5-10.1) L 08/29/16 07:00 Total Bilirubin 0.3 mg/dL (0.2-1.0) D 08/29/16 07:00 AST 31 U/L (15-37) 08/29/16 07:00 ALT 29 U/L (12-78) D 08/29/16 07:00 Alkaline Phosphatase 68 U/L (45-117) D 08/29/16 07:00 Total Protein 5.3 g/dl (6.4-8.2) L D 08/29/16 07:00 Albumin 3.1 g/dl (3.4-5.0) L D 08/29/16 07:00 Assessment: 08/29/16 11:03 WITHDRAWAL SX Plan: CONTINUE DETOX
[2016-08-29] MEDS ORDERED: PNEUMOC 13-VAL CONJ-DIP CRM/PF 0.5 ML DISP.SYRIN IM ONE (12:00)
[2016-08-29] MEDS ORDERED: PNEUMOCOCCAL 23 VACCINE 0.5 ML VIAL IM ONE (12:00)
--- NOTE | 2016-08-29 13:11 | EKG ---
Test Reason : Blood Pressure : / mmHG Vent. Rate : 086 BPM Atrial Rate : 086 BPM P-R Int : 144 ms QRS Dur : 086 ms QT Int : 406 ms P-R-T Axes : 058 058 033 degrees QTc Int : 485 ms NORMAL SINUS RHYTHM WITH SINUS ARRHYTHMIA PROLONGED QT ABNORMAL ECG WHEN COMPARED WITH ECG OF 09-MAY-2016 22:28, QT HAS LENGTHENED Confirmed by REBECCA ROBLES, DHAVAL ([id number]) on 08/29/2016 1:11:24 PM Referred By: Confirmed By:DHAVAL FERNANDEZ MD
[2016-08-29 14:06] LABS: HIV 1 & 2 AB NEGATIVE; HIV 1 AGp24 NEGATIVE
[2016-08-29] MEDS: THIAMINE HCL 100 MG TABLET (FP) PO SCH (22:42)
[2016-08-30] MEDS: diazePAM 5 MG TABLET PO PRN ×3 (05:31→19:49)
[2016-08-30] MEDS ORDERED: METHADONE HCL 5 MG TABLET (FOR DETOX USE ONLY) PO ONE (10:00)
[2016-08-30 10:24] LABS: URINE APPEARANCE CLEAR; URINE BILIRUBIN NEGATIVE (NEGATIVE); URINE BLOOD NEGATIVE (NEGATIVE); URINE COLOR LTYELLOW; URINE GLUCOSE (UA) NEGATIVE (NEGATIVE); URINE KETONE NEGATIVE (NEGATIVE); URINE LEUK ESTERASE NEGATIVE (NEGATIVE); URINE NITRITE NEGATIVE (NEGATIVE); URINE PROTEIN NEGATIVE (NEGATIVE); URINE UROBILINOGEN NEGATIVE E.U./dl (0.2-1.0)
--- NOTE | 2016-08-30 10:26 | PN ---
BHS COWS - Scale Resting Pulse: 0= [place] 80 or Below Sweatin= Chills/Flushing Restless Observation: 3= Extraneous Movement Pupil Size: 2= Moderately Dilated Bone or Joint Aches: 4=Acute Joint/Muscle Pain Runny Nose/ Eye Tearin= None GI Upset > 30mins: 0= None Tremor Observation of Outstretched Hands: 1= Tremor [place], Not Seen Yawning Observation: 2= >3x During Session Anxiety or Irritability: 2=Irritable/Anxious Goose Flesh Skin: 0=Smooth Skin COWS Score: 15 BHS Progress Note (SOAP) Subjective: ANXIETY,IRRITABILITY,CHILLS. Objective: 08/30/16 10:23 Vital Signs Temperature 95.7 F L 08/30/16 08:55 Pulse Rate 66 08/30/16 08:55 Respiratory Rate 18 08/30/16 08:55 Blood Pressure 113/71 08/30/16 08:55 O2 Sat by Pulse Oximetry (%) Laboratory Last Values WBC 6.4 K/mm3 (4.0-10.0) 08/29/16 07:00 RBC 3.92 M/mm3 (4.00-5.60) L D 08/29/16 07:00 Hgb 12.1 GM/dL (11.7-16.9) D 08/29/16 07:00 Hct 36.1 % (35.4-49) D 08/29/16 07:00 MCV 92.1 fl (80-96) 08/29/16 07:00 MCHC 33.6 g/dl (32.0-35.9) 08/29/16 07:00 RDW 14.0 % (11.9-15.9) 08/29/16 07:00 Plt Count 160 K/MM3 (134-434) 08/29/16 07:00 MPV 9.9 fl (7.5-11.1) 08/29/16 07:00 Sodium 140 mmol/L (136-145) 08/29/16 07:00 Potassium 3.6 mmol/L (3.5-5.1) 08/29/16 07:00 Chloride 104 mmol/L (98-107) 08/29/16 07:00 Carbon Dioxide 30 mmol/L (21-32) 08/29/16 07:00 Anion Gap 6 (8-16) L 08/29/16 07:00 BUN 9 mg/dL (7-18) D 08/29/16 07:00 Creatinine 0.8 mg/dL (0.7-1.3) 08/29/16 07:00 Creat Clearance w eGFR > 60 (>60) 08/29/16 07:00 Random Glucose 113 mg/dL (74-106) H D 08/29/16 07:00 Calcium 8.4 mg/dL (8.5-10.1) L 08/29/16 07:00 Total Bilirubin 0.3 mg/dL (0.2-1.0) D 08/29/16 07:00 AST 31 U/L (15-37) 08/29/16 07:00 ALT 29 U/L (12-78) D 08/29/16 07:00 Alkaline Phosphatase 68 U/L (45-117) D 08/29/16 07:00 Total Protein 5.3 g/dl (6.4-8.2) L D 08/29/16 07:00 Albumin 3.1 g/dl (3.4-5.0) L D 08/29/16 07:00 RPR Titer Nonreactive (NONREACTIVE) 08/29/16 07:00 HIV 1&2 Antibody Screen Negative 08/29/16 07:00 HIV P24 Antigen Negative 08/29/16 07:00 Assessment: 08/30/16 10:23 WITHDRAWAL SX Plan: CONTINUE DETOX
[2016-08-30] MEDS: PRENATAL VITAMINS W/ FOLIC ACID TABLET (FP) PO SCH (10:41)
[2016-08-30] MEDS: NICOTINE 21 MG/24 HOURS TOPICAL PATCH TD SCH (10:42)
[2016-08-30] MEDS ORDERED: ALBUTEROL SO4 6.7 GM HFA INHALER IH PRN (12:43)
[2016-08-30] MEDS: THIAMINE HCL 100 MG TABLET (FP) PO SCH (21:38)
[2016-08-31] MEDS ORDERED: METHADONE HCL 5 MG TABLET (FOR DETOX USE ONLY) PO ONE (10:00)
[2016-08-31] MEDS: PRENATAL VITAMINS W/ FOLIC ACID TABLET (FP) PO SCH (10:29)
[2016-08-31] MEDS: NICOTINE 21 MG/24 HOURS TOPICAL PATCH TD SCH (10:29)
[2016-08-31] MEDS: diazePAM 5 MG TABLET PO PRN ×2 (12:33→20:44)
--- NOTE | 2016-08-31 13:41 | PN ---
BHS Progress Note (SOAP) Subjective: sweats, shakes and back pain Objective: 08/31/16 13:40 Vital Signs - 8 hr 08/31/16 08/31/16 06:32 10:31 Temperature 98 F 96.0 F L Pulse Rate 58 L 75 Respiratory 16 20 Rate Blood Pressure 110/52 116/71 Laboratory Last Values WBC 6.4 K/mm3 (4.0-10.0) 08/29/16 07:00 RBC 3.92 M/mm3 (4.00-5.60) L D 08/29/16 07:00 Hgb 12.1 GM/dL (11.7-16.9) D 08/29/16 07:00 Hct 36.1 % (35.4-49) D 08/29/16 07:00 MCV 92.1 fl (80-96) 08/29/16 07:00 MCHC 33.6 g/dl (32.0-35.9) 08/29/16 07:00 RDW 14.0 % (11.9-15.9) 08/29/16 07:00 Plt Count 160 K/MM3 (134-434) 08/29/16 07:00 MPV 9.9 fl (7.5-11.1) 08/29/16 07:00 Sodium 140 mmol/L (136-145) 08/29/16 07:00 Potassium 3.6 mmol/L (3.5-5.1) 08/29/16 07:00 Chloride 104 mmol/L (98-107) 08/29/16 07:00 Carbon Dioxide 30 mmol/L (21-32) 08/29/16 07:00 Anion Gap 6 (8-16) L 08/29/16 07:00 BUN 9 mg/dL (7-18) D 08/29/16 07:00 Creatinine 0.8 mg/dL (0.7-1.3) 08/29/16 07:00 Creat Clearance w eGFR > 60 (>60) 08/29/16 07:00 Random Glucose 113 mg/dL (74-106) H D 08/29/16 07:00 Calcium 8.4 mg/dL (8.5-10.1) L 08/29/16 07:00 Total Bilirubin 0.3 mg/dL (0.2-1.0) D 08/29/16 07:00 AST 31 U/L (15-37) 08/29/16 07:00 ALT 29 U/L (12-78) D 08/29/16 07:00 Alkaline Phosphatase 68 U/L (45-117) D 08/29/16 07:00 Total Protein 5.3 g/dl (6.4-8.2) L D 08/29/16 07:00 Albumin 3.1 g/dl (3.4-5.0) L D 08/29/16 07:00 Urine Color Ltyellow 08/30/16 08:08 Urine Appearance Clear 08/30/16 08:08 Urine pH 7.0 (5.0-8.0) 08/30/16 08:08 Ur Specific [place] 1.015 (1.005-1.025) 08/30/16 08:08 Urine Protein Negative (NEGATIVE) 08/30/16 08:08 Urine Glucose (UA) Negative (NEGATIVE) 08/30/16 08:08 Urine Ketones Negative (NEGATIVE) 08/30/16 08:08 Urine Blood Negative (NEGATIVE) 08/30/16 08:08 Urine Nitrite Negative (NEGATIVE) 08/30/16 08:08 Urine Bilirubin Negative (NEGATIVE) 08/30/16 08:08 Urine Urobilinogen Negative E.U./dl (0.2-1.0) 08/30/16 08:08 Ur Leukocyte Esterase Negative (NEGATIVE) 08/30/16 08:08 RPR Titer Nonreactive (NONREACTIVE) 08/29/16 07:00 HIV 1&2 Antibody Screen Negative 08/29/16 07:00 HIV P24 Antigen Negative 08/29/16 07:00 labs noted Assessment: 08/31/16 13:40 withdrawal sx Plan: continue detox
[2016-08-31] MEDS: THIAMINE HCL 100 MG TABLET (FP) PO SCH (22:48)
[2016-09-01] MEDS ORDERED: METHADONE HCL 10 MG TABLET (FOR DETOX USE ONLY) PO ONE (10:00)
[2016-09-01] MEDS: PRENATAL VITAMINS W/ FOLIC ACID TABLET (FP) PO SCH (10:24)
[2016-09-01] MEDS: NICOTINE 21 MG/24 HOURS TOPICAL PATCH TD SCH (10:25)
--- NOTE | 2016-09-01 16:05 | PN ---
BHS Progress Note (SOAP) Subjective: Sweating, anxious, nausea, interrupted sleep Objective: 09/01/16 16:04 Last Vital Signs Temp Pulse Resp BP Pulse Ox 96.3 F L 70 20 125/74 09/01/16 13:49 09/01/16 13:49 09/01/16 13:49 09/01/16 13:49 Laboratory Tests 08/29/16 08/29/16 08/29/16 07:00 07:00 07:00 WBC 6.4 RBC 3.92 L D Hgb 12.1 D Hct 36.1 D MCV 92.1 MCHC 33.6 RDW 14.0 Plt Count 160 MPV 9.9 Sodium 140 Potassium 3.6 Chloride 104 Carbon Dioxide 30 Anion Gap 6 L BUN 9 D Creatinine 0.8 Creat Clearance w eGFR > 60 Random Glucose 113 H D Calcium 8.4 L Total Bilirubin 0.3 D AST 31 ALT 29 D Alkaline Phosphatase 68 D Total Protein 5.3 L D Albumin 3.1 L D Urine Color Urine Appearance Urine pH Ur Specific [place] Urine Protein Urine Glucose (UA) Urine Ketones Urine Blood Urine Nitrite Urine Bilirubin Urine Urobilinogen Ur Leukocyte Esterase RPR Titer Nonreactive HIV 1&2 Antibody Screen HIV P24 Antigen 08/29/16 08/30/16 07:00 08:08 WBC RBC Hgb Hct MCV MCHC RDW Plt Count MPV Sodium Potassium Chloride Carbon Dioxide Anion Gap BUN Creatinine Creat Clearance w eGFR Random Glucose Calcium Total Bilirubin AST ALT Alkaline Phosphatase Total Protein Albumin Urine Color Ltyellow Urine Appearance Clear Urine pH 7.0 Ur Specific [place] 1.015 Urine Protein Negative Urine Glucose (UA) Negative Urine Ketones Negative Urine Blood Negative Urine Nitrite Negative Urine Bilirubin Negative Urine Urobilinogen Negative Ur Leukocyte Esterase Negative RPR Titer HIV 1&2 Antibody Screen Negative HIV P24 Antigen Negative Labs noted Assessment: 09/01/16 16:04 Withdrawal symptoms Plan: Continue detox
[2016-09-01] MEDS: THIAMINE HCL 100 MG TABLET (FP) PO SCH (21:46)
[2016-09-02] MEDS ORDERED: METHADONE HCL 5 MG TABLET (FOR DETOX USE ONLY) PO ONE (06:00)
[2016-09-02 06:39] VITALS: BP 104/58; PULSE 68; TEMP 97
--- NOTE | 2016-09-02 12:31 | DS ---
[facility] Detox Discharge Summary Admission Date: 08/28/16 Discharge Date: 09/02/16 - History Present History: Opioid Dependence Pertinent Past History: Asthma, mild intermittent - Physical Exam Results Vital Signs: Vital Signs Temperature 97 F L 09/02/16 06:38 Pulse Rate 68 09/02/16 06:38 Respiratory Rate 18 09/02/16 06:38 Blood Pressure 104/58 09/02/16 06:38 O2 Sat by Pulse Oximetry (%) Pertinent Admission Physical Exam Findings: Withdrawal symptoms Laboratory Tests 08/29/16 08/29/16 08/29/16 07:00 07:00 07:00 WBC 6.4 RBC 3.92 L D Hgb 12.1 D Hct 36.1 D MCV 92.1 MCHC 33.6 RDW 14.0 Plt Count 160 MPV 9.9 Sodium 140 Potassium 3.6 Chloride 104 Carbon Dioxide 30 Anion Gap 6 L BUN 9 D Creatinine 0.8 Creat Clearance w eGFR > 60 Random Glucose 113 H D Calcium 8.4 L Total Bilirubin 0.3 D AST 31 ALT 29 D Alkaline Phosphatase 68 D Total Protein 5.3 L D Albumin 3.1 L D Urine Color Urine Appearance Urine pH Ur Specific [place] Urine Protein Urine Glucose (UA) Urine Ketones Urine Blood Urine Nitrite Urine Bilirubin Urine Urobilinogen Ur Leukocyte Esterase RPR Titer Nonreactive HIV 1&2 Antibody Screen HIV P24 Antigen 08/29/16 08/30/16 07:00 08:08 WBC RBC Hgb Hct MCV MCHC RDW Plt Count MPV Sodium Potassium Chloride Carbon Dioxide Anion Gap BUN Creatinine Creat Clearance w eGFR Random Glucose Calcium Total Bilirubin AST ALT Alkaline Phosphatase Total Protein Albumin Urine Color Ltyellow Urine Appearance Clear Urine pH 7.0 Ur Specific [place] 1.015 Urine Protein Negative Urine Glucose (UA) Negative Urine Ketones Negative Urine Blood Negative Urine Nitrite Negative Urine Bilirubin Negative Urine Urobilinogen Negative Ur Leukocyte Esterase Negative RPR Titer HIV 1&2 Antibody Screen Negative HIV P24 Antigen Negative Labs noted - Treatment Hospital Course: Detox Protocol Followed, Detoxed Safely, Responded well, Discharged Condition Good - Medication Discharge Medications: Ambulatory Orders Albuterol Sulfate Inhaler - [Ventolin HFA Inhaler -] 0 puff IH Q4H PRN #1 inhaler 05/29/16 Buprenorphine/Naloxone [Suboxone 8Mg/2Mg Sl Film -] 1 each SL BID 08/28/16 - Diagnosis (1) Nicotine dependence Status: Chronic Qualifiers: Nicotine product type: cigarettes Substance use status: in withdrawal Qualified Code(s): F17.213 - Nicotine dependence, cigarettes, with withdrawal (2) Asthma Status: Chronic Qualifiers: Asthma severity: mild intermittent Asthma complication type: uncomplicated Qualified Code(s): J45.20 - Mild intermittent asthma, uncomplicated (3) Opioid dependence with uncomplicated intoxication Status: Acute - AMA Did Patient Leave Against Medical Advice: No
== END 2016-09-02 09:10 | disposition home or self-care (01) | DRG 773 ==
LOC: YASAS 16:31 → Y3N 22:15
PROVIDERS: ADMIT Internal Medicine; ATTEND Internal Medicine
PROC: HZ2ZZZZ Detoxification Services for Substance Abuse Treatment (ICD-10-PCS; principal; 2016-09-02)
DX: F11.23 Opioid dependence with withdrawal (principal); F17.213 Nicotine dependence, cigarettes, with withdrawal; J45.20 Mild intermittent asthma, uncomplicated
CPT/HCPCS: 36415; 80053; 81003; 85027; 86593; 87389; 90732; 93005; 93010; G0009

== ENCOUNTER 2018-04-12 23:37 | Emergency (ER) | payer SELFPAY ==
[2018-04-13 01:23] VITALS: BP 120/72; PULSE 83; TEMP 98; BMI 26.5
--- NOTE | 2018-04-13 01:35 | PDOC ---
History of Present Illness <Osiris Barboza - Last Filed: 04/13/18 04:33> - General History Source: Patient, Parent(s) (Mother present at bedside), Old Records Exam Limitations: No Limitations - History of Present Illness Initial Comments: HPI: 22 y/o male presenting to [facility] ER complaining of resolved episode of palpitations, change in hearing, finger numbness, and increased anxiety. Symptoms started while pt was sitting on the toilet this evening. Resolved after he stood up and walked around. Denies headache, vision changes, or syncope. Pt was evaluated for similar symptoms yesterday at a hospital in [facility]. Symptoms have resolved at time of interview. Pt has a h/o of heroin abuse. Was sober for two years. Relapsed this FROY. Snorts, does not inject. Believes episodes have all occurred after using a new batch of heroin. Concerned it could be laced. Expressed interest in Detox. Medical Hx: - Heroin Abuse - Asthma Surgical Hx: - PT denies. <Syd Lisa - Last Filed: 04/13/18 07:02> - General Chief Complaint: Lightheaded Stated Complaint: LIGHTHEADED, DIZZINESS, NUMBNESS TO FINGER Time Seen by Provider: 04/13/18 01:34 Past History <Osiris Barboza - Last Filed: 04/13/18 04:33> - Past Medical History Anemia: No Asthma: Yes Cancer: No Cardiac Disorders: No CVA: No COPD: No CHF: No Dementia: No Diabetes: No GI Disorders: No Disorders: No HTN: No Hypercholesterolemia: No Kidney Stones: No Liver Disease: No Seizures: No Thyroid Disease: No - Surgical History Abdominal Surgery: No Appendectomy: No Cardiac Surgery: No Cholecystectomy: No Lung Surgery: No Neurologic Surgery: No Orthopedic Surgery: No - Reproductive History Testicular Surgery: No - Suicide/Smoking/Psychosocial Hx Smoking History: Unknown if ever smoked Have you smoked in the past 12 months: Yes Number of Cigarettes Smoked Daily: 20 Cigars Per Day: 0 'Breaking Loose' booklet given: 08/28/16 Hx Alcohol Use: No Drug/Substance Use Hx: Yes (Heroine) Substance Use Type: Opiates Hx Substance Use Treatment: Yes <Syd Lisa - Last Filed: 04/13/18 07:02> - Past Medical History Allergies/Adverse Reactions: Allergies Allergy/AdvReac Type Severity Reaction Status Date / Time diphenhydramine HCl Allergy Severe Swelling Verified 07/10/16 18:03 [From Benadryl] Penicillins Allergy Severe Rash Verified 07/10/16 18:03 Home Medications: Ambulatory Orders NK [No Known Home Medication] 04/13/18 Review of Systems - Review of Systems Able to Perform ROS?: Yes Comments:: In addition to that documented in the HPI above, the additional ROS was obtained : Constitutional: Denies fevers or chills Eyes: Denies vision changes ENMT: Denies sore throat CV: Per HPI Resp: Denies SOB GI: Denies vomiting or diarrhea : Denies painful urination MSK: Denies recent trauma Skin: Denies new rashes Neuro: Denies new numbness or tingling or weakness Psych: Per HPI Heme: Denies bleeding or bruising <Syd Lisa - Last Filed: 04/13/18 07:02> *Physical Exam - Vital Signs Last Vital Signs Temp Pulse Resp BP Pulse Ox 98 F 83 19 120/72 97 04/12/18 23:45 04/12/18 23:45 04/12/18 23:45 04/12/18 23:45 04/12/18 23:45 <Osiris Barboza - Last Filed: 04/13/18 04:33> - Vital Signs Last Vital Signs Temp Pulse Resp BP Pulse Ox 98 F 83 19 120/72 97 04/12/18 23:45 04/12/18 23:45 04/12/18 23:45 04/12/18 23:45 04/12/18 23:45 - Physical Exam Comments: Constitutional: Well-developed, well-nourished male in no acute distress or obvious discomfort. Found sitting upright on edge of hospital hallway bed. Observed walking through the department unassisted without assistance. Alert and oriented x4. Head: Normocephalic. No obvious external signs of trauma. Eyes: Pupils 3mm and PERRL bilaterally. Sclerae white. EARS: Hearing grossly intact. NOSE: No nasal discharge. Neck: Supple, trachea is midline. Cardiovascular: Regular rate and regular rhythm. No murmur, rubs, clicks, or gallops. Peripheral pulses: Radial pulses full. Respiratory: Breathing unlabored. Equal chest rise and fall. Clear to auscultation bilaterally. No stridor, no wheezing, no rhonchi. Gastrointestinal: abdomen is soft, non-tender, non-distended. Neuro: Alert and oriented. Moving all four extremities spontaneously. Hands non tremulous. Gait normal. Skin: Warm, dry, and intact. Psych: Affect: appropriate. Mood: concerned. <Syd Lisa - Last Filed: 04/13/18 07:02> Moderate Sedation - Procedure Monitoring Vital Signs: Procedure Monitoring Vital Signs Temperature 98 F 04/12/18 23:45 Pulse Rate 83 04/12/18 23:45 Respiratory Rate 04/12/18 23:45 Blood Pressure 120/72 04/12/18 23:45 O2 Sat by Pulse Oximetry (%) 97 04/12/18 23:45 <Osiris Barboza - Last Filed: 04/13/18 04:33> - Procedure Monitoring Vital Signs: Procedure Monitoring Vital Signs Temperature 98 F 04/12/18 23:45 Pulse Rate 83 04/12/18 23:45 Respiratory Rate 04/12/18 23:45 Blood Pressure 120/72 04/12/18 23:45 O2 Sat by Pulse Oximetry (%) 97 04/12/18 23:45 <Syd Lisa - Last Filed: 04/13/18 07:02> ED Treatment Course - ADDITIONAL ORDERS Additional order review: Laboratory Results 04/13/18 03:02 Opiates Screen Positive A* Methadone Screen Negative Barbiturate Screen Negative Phencyclidine Screen Negative Ur Amphetamines Screen Negative MDMA (Ecstasy) Screen Negative Benzodiazepines Screen Negative Cocaine Screen Negative U Marijuana (THC) Screen Negative - Medications Given in the ED: ED Medications Discontinued Medications Generic Name Dose Route Start Last Admin Trade Name Freq PRN Reason Stop Dose Admin Clonidine 0.1 mg 04/13/18 02:55 04/13/18 03:21 Catapres - PO 04/13/18 02:56 0.1 mg ONCE ONE Administration <Osiris Barboza - Last Filed: 04/13/18 04:33> *DC/Admit/Observation/Transfer - Discharge Dispostion Decision to Admit order: No <Osiris Barboza - Last Filed: 04/13/18 04:33> <Syd Lisa - Last Filed: 04/13/18 07:02> Diagnosis at time of Disposition: Opioid dependence - Discharge Dispostion Disposition: PRISON FACILITY Condition at time of disposition: Stable - Patient Instructions Printed Discharge Instructions: Getting Treatment for Drug Addiction Additional Instructions: SECURITY FROM THE HOSPITAL WILL BE TAKING PATIENT TO THE [facility] DETOX FACILITY
--- NOTE | 2018-04-13 02:00 | PDOC ---
Attending Attestation - Resident Resident Name: Syd Lisa - ED Attending Attestation I have performed the following: I have examined & evaluated the patient, The case was reviewed & discussed with the resident, I agree w/resident's findings & plan - HPI HPI: 04/13/18 03:52 Pt comes requesting opiate detox. He had been clean x 2 years and now relapsed. Accompanied buy mom. - Physicial Exam PE: 04/13/18 03:53 Normal exam. Agree with resident. - Medical Decision Making 04/13/18 03:53 UTOx is + for opiate. Send to [facility] at 5AM
[2018-04-13] MEDS ORDERED: cloNIDine HCL 0.1 MG TABLET PO ONE (02:55)
[2018-04-13] MEDS ORDERED: cloNIDine HCL 0.1 MG TABLET ONE (03:19)
[2018-04-13 03:43] LABS: COCAINE, UR NEGATIVE ng/ml (CUTOFF=300); METHADONE, UR NEGATIVE ng/ml (CUTOFF=300); PHENCYCLIDINE,URINE NEGATIVE ng/ml (CUTOFF=25); URINE AMPHETAMINES NEGATIVE ng/ml (CUTOFF=500); URINE BARBITURATES NEGATIVE ng/ml (CUTOFF=200); URINE BENZODIAZEPINES NEGATIVE ng/ml (CUTOFF=200)
[2018-04-13 03:44] LABS: OPIATES, URI POSITIVE ng/ml (CUTOFF=300)
--- NOTE | 2018-04-13 09:37 | EKG ---
Test Reason : Blood Pressure : / mmHG Vent. Rate : 059 BPM Atrial Rate : 059 BPM P-R Int : 138 ms QRS Dur : 088 ms QT Int : 410 ms P-R-T Axes : 027 061 041 degrees QTc Int : 405 ms SINUS BRADYCARDIA OTHERWISE NORMAL ECG WHEN COMPARED WITH ECG OF 28-AUG-2016 22:23, VENT. RATE HAS DECREASED Confirmed by JOSE ALBERTO VALDES MD ([id number]) on 04/13/2018 9:37:26 AM Referred By: Confirmed By:JOSE ALBERTO VALDES MD
== END 2018-04-13 05:05 | disposition short-term general hospital (02) ==
LOC: JER 23:37
DX: F11.20 Opioid dependence, uncomplicated (principal)
CPT/HCPCS: 80307; 93005; 93010; 99281-25; J0735

== ENCOUNTER 2018-04-13 05:23 | Inpatient (IN) | payer OTHER ==
[2018-04-13 08:45] VITALS: BMI 27.6
--- NOTE | 2018-04-13 08:59 | HP ---
COWS - Scale Resting Pulse: 0= [place] 80 or Below Sweatin=Flushed/Facial Moisture Restless Observation: 3= Extraneous Movement Pupil Size: 1= Pupils >than Normal Bone or Joint Aches: 2= Severe Diffuse Aches Runny Nose/ Eye Tearin= Runny Nose/Eyes GI Upset > 30mins: 2= Nausea/Diarrhea Tremor Observation: 2= Slight Tremor Visible Yawning Observation: 1= 1-2x During Session Anxiety or Irritability: 2=Irritable/Anxious Goose Flesh Skin: 0=Smooth Skin COWS Score: 17 CIWA Score - Admission Criteria [facility]ASAS Guidelines: Admission for Medically Managed Detox: Requires at least one of the followin. CIWA greater than 12 2. Seizures within the past 24 hours 3. Delirium tremens within the past 24 hours 4. Hallucinations within the past 24 hours 5. Acute intervention needed for co occurring medical disorder 6. Acute intervention needed for co occurring psychiatric disorder 7. Severe withdrawal that cannot be handled at a lower level of care (continued vomiting, continued diarrhea, abnormal vital signs) requiring intravenous medication and/or fluids 8. Admission ROS [facility] Chief Complaint: i need help to stop using heroin Allergies/Adverse Reactions: Allergies Allergy/AdvReac Type Severity Reaction Status Date / Time diphenhydramine HCl Allergy Severe Swelling Verified 04/13/18 09:29 [From Benadryl] Penicillins Allergy Severe Rash Verified 04/13/18 09:29 History of Present Illness: this 22 years old male with heroin dependence,seeking detox,withdrawal symptom, seen in [facility] ,refer to detox,[facility] to 05/30/16 nicotine dependence longest of sobriety for 1 year Exam Limitations: No Limitations - Ebola screening Have you been sick,other than usual withdrawal symptoms: No - Review of Systems Constitutional: Chills, Loss of Appetite, Malaise, Night Sweats, Changes in sleep, Weakness EENT: reports: Tearing, Nose Congestion Respiratory: reports: No Symptoms reported Cardiac: reports: No Symptoms Reported GI: reports: Diarrhea, Nausea, Vomiting, Abdominal cramping : reports: No Symptoms Reported Musculoskeletal: reports: Back Pain, Joint Pain, Muscle Pain, Joint Stiffness Integumentary: reports: Dryness Neuro: reports: Headache, Tremors Endocrine: reports: No Symptoms Reported Hematology: reports: No Symptoms Reported Psychiatric: reports: No Sypmtoms Reported, Judgement Intact, Mood/Affect Appropiate, Orientated x3 Patient History - Patient Medical History Hx Anemia: No Hx Asthma: Yes (childhood asthma) Hx Chronic Obstructive Pulmonary Disease (COPD): No Hx Cancer: No Hx Cardiac Disorders: No Hx Congestive Heart Failure: No Hx Hypertension: No Hx Hypercholesterolemia: No Hx Pacemaker: No HX Cerebrovascular Accident: No Hx Seizures: No Hx Dementia: No Hx Diabetes: No Hx Gastrointestinal Disorders: No Hx Liver Disease: No Hx Genitourinary Disorders: No Hx Sexually Transmitted Disorders: No Hx Renal Disease (ESRD): No Hx Thyroid Disease: No Hx Human Immunodeficiency Virus (HIV): No (07/23 last negative) Hx Hepatitis C: No Hx Depression: No Hx Suicide Attempt: No Hx Bipolar Disorder: No Hx Schizophrenia: No Other Medical History: no suicidal,no homicidal - Patient Surgical History Past Surgical History: No Hx Neurologic Surgery: No Hx Cataract Extraction: No Hx Cardiac Surgery: No Hx Lung Surgery: No Hx Breast Surgery: No Hx Breast Biopsy: No Hx Abdominal Surgery: No Hx Appendectomy: No Hx Cholecystectomy: No Hx Genitourinary Surgery: No Hx Section: No Hx Orthopedic Surgery: No Anesthesia Reaction: No - PPD History Previous Implant?: Yes Documented Results: Negative w/o proof Date: 03/06/16 Results: 0mm PPD to be Administered?: Yes - Smoking Cessation Smoking history: Current every day smoker Have you smoked in the past 12 months: Yes Aproximately how many cigarettes per day: 20 Cigars Per Day: 0 Hx Chewing Tobacco Use: No Initiated information on smoking cessation: Yes 'Breaking Loose' booklet given: 04/13/18 - Substance & Tx. History Hx Alcohol Use: No Hx Substance Use: Yes Substance Use Type: Heroin Hx Substance Use Treatment: Yes (j 03/04/16 to 03/09/16,rehab05/09/16 to ) - Substances Abused Heroin Route: Inhalation Frequency: Daily Amount used: 6 bags Age of first use: 17 Date of Last Use: 04/12/18 Family Disease History - Family Disease History Family Disease History: Other: Father (hepatitis c treated) Admission Physical Exam BHS - Vital Signs Vital Signs: Vital Signs - 24 hr 04/13/18 08:43 Temperature 97.0 F L Pulse Rate 72 Respiratory 20 Rate Blood Pressure 120/69 - Physical General Appearance: Yes: Moderate Distress, Tremorous, Irritable, Sweating, Anxious HEENTM: Yes: Normal ENT Inspection, GREGORY, Pharynx Normal Respiratory: Yes: Lungs Clear, Normal Breath Sounds, No Respiratory Distress Neck: Yes: Within Normal Limits, Supple, Trachea in good position Breast: Yes: Within Normal Limits Cardiology: Yes: Within Normal Limits, Regular Rhythm, Regular Rate, S1, S2 Abdominal: Yes: Within Normal Limits, Normal Bowel Sounds, Non Tender, Flat, Soft Genitourinary: Yes: Within Normal Limits Back: Yes: Muscle Spasm Musculoskeletal: Yes: Back pain, Muscle Pain Extremities: Yes: Tremors 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 NML intact, Fully Oriented, Alert, Motor Strength 5/5 Integumentary: Yes: Dry Lymphatic: Yes: Within Normal Limits - Diagnostic (1) Opioid dependence with withdrawal Current Visit: Yes Status: Acute (2) Asthma Current Visit: Yes Status: Acute (3) Eczema Current Visit: No Status: Chronic Qualifiers: Eczema type: other Qualified Code(s): L30.8 - Other specified dermatitis Comment: feet (4) Nicotine dependence Current Visit: No Status: Chronic Qualifiers: Cleared for Admission [facility] - Detox or Rehab [facility] Level of Care: Medically Managed Detox Regimen/Protocol: Methadone [facility] Breath Alcohol Content Breath Alcohol Content: 0 Urine Drug Screen - Results Drug Screen Negative: No Urine Drug Screen Results: OPI-Opiates
[2018-04-13] MEDS ORDERED: MAGNESIUM CITRATE 300 ML BOTTLE PO PRN (09:20)
[2018-04-13] MEDS ORDERED: IBUPROFEN 400 MG TABLET (FP) PO PRN (09:20)
[2018-04-13] MEDS ORDERED: P-EPHED 60MG/TRIPROLIDI 2.5MG TABLET PO PRN (09:20)
[2018-04-13] MEDS ORDERED: MAG HYDROX/AL HYDROX/SIMETH 30 ML UNIT-DOSE CUP PO PRN (09:20)
[2018-04-13] MEDS ORDERED: MAGNESIUM HYDROX 2400MG/30ML ORAL SUSPENSION 30 ML CUP PO PRN (09:20)
[2018-04-13] MEDS ORDERED: LOPERAMIDE HCL 2 MG CAPSULE PO PRN (09:20)
[2018-04-13] MEDS ORDERED: MENTHOL/PHENOL 1 EACH UD MM PRN (09:20)
[2018-04-13] MEDS ORDERED: ACETAMINOPHEN 325 MG TABLET (FP) PO PRN (09:20)
[2018-04-13] MEDS ORDERED: guaiFENesin/D-METHORPHAN HB 10 ML UNIT-DOSE CUPS PO PRN (09:20)
[2018-04-13] MEDS ORDERED: METHADONE HCL 10 MG TABLET (FOR DETOX USE ONLY) PO ONE ×2 (10:45→23:00)
[2018-04-13] MEDS: NICOTINE 21 MG/24 HOURS TOPICAL PATCH TD SCH (11:17)
[2018-04-13] MEDS: cloNIDine HCL 0.1 MG TABLET PO SCH ×2 (11:21→22:13)
[2018-04-13] MEDS: PRENATAL VITAMINS W/ FOLIC ACID TABLET (FP) PO SCH (11:21)
[2018-04-13 14:51] LABS: URINE APPEARANCE CLEAR; URINE BILIRUBIN NEGATIVE (<2.0 mg/dL); URINE COLOR LTYELLOW; URINE GLUCOSE (UA) NEGATIVE (NEGATIVE); URINE KETONE NEGATIVE (NEGATIVE); URINE LEUK ESTERASE NEGATIVE (NEGATIVE); URINE NITRITE NEGATIVE (NEGATIVE); URINE PROTEIN NEGATIVE (NEGATIVE); URINE UROBILINOGEN NEGATIVE mg/dL (0.2-1.0)
[2018-04-13] MEDS ORDERED: MELATONIN 5 MG TABLETS PO PRN (22:00)
[2018-04-13] MEDS: THIAMINE HCL 100 MG TABLET (FP) PO SCH (22:12)
[2018-04-14] MEDS: diazePAM 5 MG TABLET PO PRN ×3 (02:05→22:18)
[2018-04-14] MEDS ORDERED: METHADONE HCL 10 MG TABLET (FOR DETOX USE ONLY) PO ONE (10:00)
[2018-04-14 10:21] LABS: HEMATOCRIT 43.7 % (35.4-49); HEMOGLOBIN 13.8 GM/dL (11.7-16.9); MCHC 31.7 g/dl (32.0-35.9); MEAN CELL VOLUME 94.8 fl (80-96); MEAN PLT VOLUME 10.9 fl (7.5-11.1); PLATELET COUNT 189 K/MM3 (134-434); RBC 4.61 M/mm3 (4.00-5.60); RDW 13.7 % (11.9-15.9); WHITE BLOOD COUNT 5.6 K/mm3 (4.0-10.0)
[2018-04-14 10:39] LABS: ALK PHOS 78 U/L (45-117); ANION GAP 5 MMOL/L (8-16); BILIRUBIN,TOTAL 0.3 mg/dL (0.2-1); BLOOD UREA NITROGEN 14 mg/dL (7-18); CALCIUM 9.1 mg/dL (8.5-10.1); CHLORIDE 104 mmol/L (98-107); CO2 30 mmol/L (21-32); CREATININE 0.9 mg/dL (0.55-1.3); GLUCOSE,RANDOM 88 mg/dL (74-106); POTASSIUM 4.5 mmol/L (3.5-5.1); SGOT/AST 27 U/L (15-37); SGPT/ALT 30 U/L (13-61); SODIUM 139 mmol/L (136-145)
[2018-04-14] MEDS: cloNIDine HCL 0.1 MG TABLET PO SCH ×2 (11:02→22:17)
[2018-04-14] MEDS: PRENATAL VITAMINS W/ FOLIC ACID TABLET (FP) PO SCH (11:02)
[2018-04-14] MEDS: NICOTINE 21 MG/24 HOURS TOPICAL PATCH TD SCH (11:03)
[2018-04-14] MEDS ORDERED: FLU VACCINE QUAD 60 MCG/0.5 ML (MDV 18-19) IM ONE (12:00)
--- NOTE | 2018-04-14 17:21 | PN ---
BHS COWS - Scale Resting Pulse: 0= [place] 80 or Below Sweatin= Chills/Flushing Restless Observation: 1= Difficult to Sit Still Pupil Size: 0= Normal to Room Light Bone or Joint Aches: 2= Severe Diffuse Aches Runny Nose/ Eye Tearin= Nasal Congestion GI Upset > 30mins: 0= None Tremor Observation of Outstretched Hands: 2= Slight Tremor Visible Yawning Observation: 1= 1-2x During Session Anxiety or Irritability: 4=Extreme Anxiety Goose Flesh Skin: 0=Smooth Skin COWS Score: 12 BHS Progress Note (SOAP) Subjective: Sweating, Tremors, Anxious, Body Aches. Objective: PATIENT A & O X 3, OBSERVED AMBULATING ON UNIT. IN NO ACUTE DISTRESS. 04/14/18 17:18 Vital Signs Temperature 97.9 F 04/14/18 15:43 Pulse Rate 69 04/14/18 15:43 Respiratory Rate 18 04/14/18 15:43 Blood Pressure 118/76 04/14/18 15:43 O2 Sat by Pulse Oximetry (%) Laboratory Tests 04/13/18 04/14/18 04/14/18 11:40 06:00 06:00 WBC 5.6 RBC 4.61 Hgb 13.8 Hct 43.7 D MCV 94.8 MCH 30.0 MCHC 31.7 L RDW 13.7 Plt Count 189 MPV 10.9 D Sodium 139 Potassium 4.5 Chloride 104 Carbon Dioxide 30 Anion Gap 5 L BUN 14 Creatinine 0.9 Creat Clearance w eGFR > 60 Random Glucose 88 Calcium 9.1 Total Bilirubin 0.3 AST 27 ALT 30 Alkaline Phosphatase 78 Total Protein 7.0 Albumin 4.0 Urine Color Ltyellow Urine Appearance Clear Urine pH 6.0 Ur Specific [place] 1.012 Urine Protein Negative Urine Glucose (UA) Negative Urine Ketones Negative Urine Blood 2+ H Urine Nitrite Negative Urine Bilirubin Negative Urine Urobilinogen Negative Ur Leukocyte Esterase Negative Urine WBC (Auto) <1 Urine RBC (Auto) 1 RPR Titer 04/14/18 06:00 WBC RBC Hgb Hct MCV MCH MCHC RDW Plt Count MPV Sodium Potassium Chloride Carbon Dioxide Anion Gap BUN Creatinine Creat Clearance w eGFR Random Glucose Calcium Total Bilirubin AST ALT Alkaline Phosphatase Total Protein Albumin Urine Color Urine Appearance Urine pH Ur Specific [place] Urine Protein Urine Glucose (UA) Urine Ketones Urine Blood Urine Nitrite Urine Bilirubin Urine Urobilinogen Ur Leukocyte Esterase Urine WBC (Auto) Urine RBC (Auto) RPR Titer Nonreactive LABS NOTED. Assessment: 04/14/18 17:18 WITHDRAWAL SYMPTOMS. HEMATURIA. 04/14/18 17:20 Plan: CONTINUE DETOX. INCREASE DAILY PO FLUID INTAKE. REPEAT UA FOR ADMISSION URINE BLOOD LEVEL.
[2018-04-14] MEDS: THIAMINE HCL 100 MG TABLET (FP) PO SCH (22:18)
[2018-04-14] MEDS: CYCLOBENZAPRINE HCL 10 MG TABLET (FP) PO PRN (22:18)
[2018-04-15] MEDS ORDERED: METHADONE HCL 5 MG TABLET (FOR DETOX USE ONLY) PO ONE (10:00)
[2018-04-15] MEDS: NICOTINE 21 MG/24 HOURS TOPICAL PATCH TD SCH (10:35)
[2018-04-15] MEDS: PRENATAL VITAMINS W/ FOLIC ACID TABLET (FP) PO SCH (10:36)
[2018-04-15] MEDS: cloNIDine HCL 0.1 MG TABLET PO SCH ×2 (10:38→22:06)
[2018-04-15] MEDS: diazePAM 5 MG TABLET PO PRN ×3 (10:39→22:07)
--- NOTE | 2018-04-15 12:54 | PN ---
BHS COWS - Scale Resting Pulse: 0= [place] 80 or Below Sweatin=Flushed/Facial Moisture Restless Observation: 1= Difficult to Sit Still Pupil Size: 2= Moderately Dilated Bone or Joint Aches: 2= Severe Diffuse Aches Runny Nose/ Eye Tearin= None GI Upset > 30mins: 2= Nausea/Diarrhea Tremor Observation of Outstretched Hands: 0= None Yawning Observation: 0= None Anxiety or Irritability: 1=Feels Anxious/Irritable Goose Flesh Skin: 3=Piloerection COWS Score: 13 BHS Progress Note (SOAP) Subjective: PATIENT C/O CHILLS, ANXIETY, BODY ACHES AND DIARRHEA. Objective: 04/15/18 12:53 Vital Signs Temperature 98.0 F 04/15/18 09:38 Pulse Rate 73 04/15/18 09:38 Respiratory Rate 18 04/15/18 09:38 Blood Pressure 109/59 L 04/15/18 09:38 O2 Sat by Pulse Oximetry (%) Laboratory Tests 04/13/18 04/14/18 04/14/18 11:40 06:00 06:00 WBC 5.6 RBC 4.61 Hgb 13.8 Hct 43.7 D MCV 94.8 MCH 30.0 MCHC 31.7 L RDW 13.7 Plt Count 189 MPV 10.9 D Sodium 139 Potassium 4.5 Chloride 104 Carbon Dioxide 30 Anion Gap 5 L BUN 14 Creatinine 0.9 Creat Clearance w eGFR > 60 Random Glucose 88 Calcium 9.1 Total Bilirubin 0.3 AST 27 ALT 30 Alkaline Phosphatase 78 Total Protein 7.0 Albumin 4.0 Urine Color Ltyellow Urine Appearance Clear Urine pH 6.0 Ur Specific [place] 1.012 Urine Protein Negative Urine Glucose (UA) Negative Urine Ketones Negative Urine Blood 2+ H Urine Nitrite Negative Urine Bilirubin Negative Urine Urobilinogen Negative Ur Leukocyte Esterase Negative Urine WBC (Auto) <1 Urine RBC (Auto) 1 RPR Titer 04/14/18 06:00 WBC RBC Hgb Hct MCV MCH MCHC RDW Plt Count MPV Sodium Potassium Chloride Carbon Dioxide Anion Gap BUN Creatinine Creat Clearance w eGFR Random Glucose Calcium Total Bilirubin AST ALT Alkaline Phosphatase Total Protein Albumin Urine Color Urine Appearance Urine pH Ur Specific [place] Urine Protein Urine Glucose (UA) Urine Ketones Urine Blood Urine Nitrite Urine Bilirubin Urine Urobilinogen Ur Leukocyte Esterase Urine WBC (Auto) Urine RBC (Auto) RPR Titer Nonreactive PE: ALERT AND ORIENTED X 3 SKIN + GOOSEFLESH, FACIAL FLUSHING EXT FULL ROM, NO VISIBLE TREMORS AMB AD WENDY +ANXIETY Assessment: 04/15/18 12:54 WITHDRAWAL SX HEMATURIA Plan: CONTINUE DETOX ENCOURAGE ORAL FLUIDS REPEAT UA CONTINUE TO MONITOR
[2018-04-15] MEDS: THIAMINE HCL 100 MG TABLET (FP) PO SCH (22:06)
[2018-04-15] MEDS: CYCLOBENZAPRINE HCL 10 MG TABLET (FP) PO PRN (22:07)
[2018-04-16] MEDS ORDERED: METHADONE HCL 5 MG TABLET (FOR DETOX USE ONLY) PO ONE (10:00)
[2018-04-16] MEDS: NICOTINE 21 MG/24 HOURS TOPICAL PATCH TD SCH (10:37)
[2018-04-16] MEDS: cloNIDine HCL 0.1 MG TABLET PO SCH ×2 (10:38→23:01)
[2018-04-16] MEDS: CYCLOBENZAPRINE HCL 10 MG TABLET (FP) PO PRN (10:40)
[2018-04-16] MEDS: PRENATAL VITAMINS W/ FOLIC ACID TABLET (FP) PO SCH (10:40)
[2018-04-16 11:14] LABS: URINE APPEARANCE CLEAR; URINE BILIRUBIN NEGATIVE (<2.0 mg/dL); URINE COLOR STRAW; URINE GLUCOSE (UA) NEGATIVE (NEGATIVE); URINE KETONE NEGATIVE (NEGATIVE); URINE LEUK ESTERASE NEGATIVE (NEGATIVE); URINE NITRITE NEGATIVE (NEGATIVE); URINE PROTEIN NEGATIVE (NEGATIVE); URINE UROBILINOGEN NEGATIVE mg/dL (0.2-1.0)
--- NOTE | 2018-04-16 11:42 | PN ---
BHS Progress Note (SOAP) Subjective: tired sweats interrupted sleep Objective: 04/16/18 11:41 Vital Signs Temperature 95.7 F L 04/16/18 09:44 Pulse Rate 71 04/16/18 09:44 Respiratory Rate 16 04/16/18 09:44 Blood Pressure 109/51 L 04/16/18 09:44 O2 Sat by Pulse Oximetry (%) [id number] ambulating no acute distress Assessment: 04/16/18 11:41 withdrawal sx Plan: continue detox increase fluids
[2018-04-16] MEDS: THIAMINE HCL 100 MG TABLET (FP) PO SCH (23:01)
[2018-04-17] MEDS ORDERED: METHADONE HCL 10 MG TABLET (FOR DETOX USE ONLY) PO ONE (10:00)
[2018-04-17] MEDS: NICOTINE 21 MG/24 HOURS TOPICAL PATCH TD SCH (10:32)
[2018-04-17] MEDS: PRENATAL VITAMINS W/ FOLIC ACID TABLET (FP) PO SCH (10:32)
[2018-04-17] MEDS: cloNIDine HCL 0.1 MG TABLET PO SCH ×2 (10:33→23:07)
--- NOTE | 2018-04-17 12:37 | PN ---
BHS Progress Note (SOAP) Subjective: tired little sweats Objective: 04/17/18 12:37 Vital Signs Temperature 97.7 F 04/17/18 09:34 Pulse Rate 78 04/17/18 09:34 Respiratory Rate 18 04/17/18 09:34 Blood Pressure 115/77 04/17/18 09:34 O2 Sat by Pulse Oximetry (%) aaox3 ambulating no acute distress Assessment: 04/17/18 12:37 mild withdrawal sx Plan: continue detox increase fluids d/c in am
[2018-04-17] MEDS: THIAMINE HCL 100 MG TABLET (FP) PO SCH (21:30)
[2018-04-17] MEDS: CYCLOBENZAPRINE HCL 10 MG TABLET (FP) PO PRN (21:30)
[2018-04-18] MEDS ORDERED: METHADONE HCL 5 MG TABLET (FOR DETOX USE ONLY) PO ONE (06:00)
[2018-04-18 06:41] VITALS: BP 111/57; PULSE 68; TEMP 97.2
--- NOTE | 2018-04-18 14:06 | DS ---
[facility] Detox Discharge Summary Admission Date: 04/13/18 Discharge Date: 04/18/18 - History Additional Comments: Pt discharged. Left the floor prior to the provider arriving the unit. Vital Signs Temperature 97.2 F L 04/18/18 06:00 Pulse Rate 68 04/18/18 06:00 Respiratory Rate 18 04/18/18 06:00 Blood Pressure 111/57 L 04/18/18 06:00 O2 Sat by Pulse Oximetry (%) Pt was not on home meds - Physical Exam Results Vital Signs: Vital Signs Temperature 97.2 F L 04/18/18 06:00 Pulse Rate 68 04/18/18 06:00 Respiratory Rate 18 04/18/18 06:00 Blood Pressure 111/57 L 04/18/18 06:00 O2 Sat by Pulse Oximetry (%) Pertinent Admission Physical Exam Findings: withdrawal sx - Treatment Hospital Course: Detox Protocol Followed, Detoxed Safely, Responded well, Discharged Condition Good - Medication Discharge Medications: Ambulatory Orders NK [No Known Home Medication] 04/13/18 - AMA Did Patient Leave Against Medical Advice: No
== END 2018-04-18 08:48 | disposition home or self-care (01) | DRG 773 ==
LOC: YASAS 05:23 → Y6N 10:02
PROC: HZ2ZZZZ Detoxification Services for Substance Abuse Treatment (ICD-10-PCS; principal; 2018-04-13)
DX: F11.23 Opioid dependence with withdrawal (principal); F17.210 Nicotine dependence, cigarettes, uncomplicated; J45.20 Mild intermittent asthma, uncomplicated; L30.8 Other specified dermatitis; L40.9 Psoriasis, unspecified; R31.9 Hematuria, unspecified; Z88.0 Allergy status to penicillin; Z88.8 Allergy status to other drugs, medicaments and biological substances
CPT/HCPCS: 36415; 80053; 81003; 81015; 85027; 86593; 90688; G0008; J0735

== ENCOUNTER 2018-04-20 00:29 | Emergency (ER) | payer OTHER ==
--- NOTE | 2018-04-20 01:27 | PDOC ---
History of Present Illness - General Chief Complaint: Palpitations Stated Complaint: DIFFICULTY BREATHING,PALPITATIONS Time Seen by Provider: 04/20/18 01:26 - History of Present Illness Initial Comments: 04/20/18 01:35 Mr. Patiño is a 22 yo male w/ pmh of heroin abuse who presents for evaluation of palpitations and anxiety symptoms. Patient reports he was sober for 2 years before using for a week at [facility]. Last use on the , patient went in to detox after this and has been on methadone until yesterday. Patient reports palpitations started upon discharge from detox. Patient denies any other associated symptoms. The patient denies chest pain, shortness of breath, headache and dizziness. Denies fever, chills, nausea, vomit, diarrhea and constipation. Denies dysuria, frequency, urgency and hematuria. Past History - Past Medical History Allergies/Adverse Reactions: Allergies Allergy/AdvReac Type Severity Reaction Status Date / Time diphenhydramine HCl Allergy Severe Swelling Verified 04/20/18 00:57 [From Benadryl] Penicillins Allergy Severe Rash Verified 04/20/18 00:57 Home Medications: Ambulatory Orders NK [No Known Home Medication] 04/13/18 Anemia: No Asthma: Yes (childhood asthma) Cancer: No Cardiac Disorders: No CVA: No COPD: No CHF: No Dementia: No Diabetes: No GI Disorders: No Disorders: No HTN: No Hypercholesterolemia: No Kidney Stones: No Liver Disease: No Seizures: No Thyroid Disease: No - Surgical History Abdominal Surgery: No Appendectomy: No Cardiac Surgery: No Cholecystectomy: No Lung Surgery: No Neurologic Surgery: No Orthopedic Surgery: No - Reproductive History Testicular Surgery: No - Suicide/Smoking/Psychosocial Hx Smoking History: Never smoked Have you smoked in the past 12 months: No Number of Cigarettes Smoked Daily: 20 Cigars Per Day: 0 Information on smoking cessation initiated: No 'Breaking Loose' booklet given: 04/13/18 Hx Alcohol Use: No Drug/Substance Use Hx: No Substance Use Type: Heroin Hx Substance Use Treatment: Yes ([facility] 03/04/16 to 03/09/16,rehab05/09/16 to ) Review of Systems - Review of Systems Comments:: 04/20/18 01:38 GENERAL/CONSTITUTIONAL: No fever or chills. No weakness. HEAD, EYES, EARS, NOSE AND THROAT: No change in vision. No ear pain or discharge. No sore throat. CARDIOVASCULAR: +Palpitations as described. No chest pain or shortness of breath RESPIRATORY: No cough, wheezing, or hemoptysis. GASTROINTESTINAL: No nausea, vomiting, diarrhea or constipation. GENITOURINARY: No dysuria, frequency, or change in urination. MUSCULOSKELETAL: No joint or muscle swelling or pain. No neck or back pain. SKIN: No rash NEUROLOGIC: No headache, vertigo, loss of consciousness, or change in strength/ sensation. ENDOCRINE: No increased thirst. No abnormal weight change HEMATOLOGIC/LYMPHATIC: No anemia, easy bleeding, or history of blood clots. ALLERGIC/IMMUNOLOGIC: No hives or skin allergy. *Physical Exam - Vital Signs Last Vital Signs Temp Pulse Resp BP Pulse Ox 98.1 F 65 18 129/74 98 04/20/18 00:47 04/20/18 00:47 04/20/18 00:47 04/20/18 00:47 04/20/18 00:47 - Physical Exam Comments: 04/20/18 01:38 GENERAL: Awake, alert, and fully oriented, in no acute distress HEAD: No signs of trauma, normocephalic, atraumatic EYES: PERRLA, EOMI, sclera anicteric, conjunctiva clear ENT: Auricles normal inspection, hearing grossly normal, nares patent, oropharynx clear without exudates. Moist mucosa NECK: Normal ROM, supple, no lymphadenopathy, JVD, or masses LUNGS: No distress, speaks full sentences, clear to auscultation bilaterally HEART: Regular rate and rhythm, normal S1 and S2, no murmurs, rubs or gallops, peripheral pulses normal and equal bilaterally. ABDOMEN: Soft, nontender, normoactive bowel sounds. No guarding, no rebound. No masses EXTREMITIES: Normal inspection, Normal range of motion, no edema. No clubbing or cyanosis. NEUROLOGICAL: Cranial nerves II through XII grossly intact. Normal speech, normal gait, no focal sensorimotor deficits SKIN: Warm, Dry, normal turgor, no rashes or lesions noted. Moderate Sedation - Procedure Monitoring Vital Signs: Procedure Monitoring Vital Signs Temperature 98.1 F 04/20/18 00:47 Pulse Rate 65 04/20/18 00:47 Respiratory Rate 18 04/20/18 00:47 Blood Pressure 129/74 04/20/18 00:47 O2 Sat by Pulse Oximetry (%) 98 04/20/18 00:47 Medical Decision Making - Medical Decision Making 04/20/18 01:53 Mr. Patiño is a 22 yo male w/ pmh as described who presents for evaluation of symptoms concerning for anxiety vs. withdrawal vs. ACS. Patient evaluated with EKG with no concerning findings. 04/20/18 02:15 Patient stable with no acute findings. Patient provided psychiatry resources as well. Discharging to home for further outpatient evaluation. *DC/Admit/Observation/Transfer Diagnosis at time of Disposition: Palpitations - Discharge Dispostion Disposition: HOME - Referrals Referrals: Connor Munguia MD [Staff Physician] - Kendall Regalado MD [Staff Physician] - Chris Castro NP [Nurse Practitioner] - [facility] [Provider Group] - Patient Instructions Printed Discharge Instructions: DI for Palpitations Additional Instructions: You were evaluated today in the ER for your symptoms. No concerning findings were found at this time. Please follow-up with primary care provider for further evaluation. We have also provided psychiatry services you may use if you would like. Return to ER if any increased palpitations, fever, chills, or other concerning symptoms. - Post Discharge Activity
[2018-04-20 01:32] VITALS: BMI 27.2
--- NOTE | 2018-04-20 01:33 | PDOC ---
Attending Attestation - HPI HPI: 04/20/18 01:53 The patient is a 22 year old male with a past medical history of heroin abuse here today for evaluation of heart palpitations. Patient reports using heroin for 1 week around New Years and then entering detox taking methadone for 2 weeks until yesterday. He began to feel heart palpitations today. Patient denies headache, lightheadedness. Denies fever, chills. Denies chest pain, shortness of breath. Denies nausea, vomiting, diarrhea, abdominal pain. Allergies: diphenhydramine HCL, penicillins Social history: Patient confirms heroin abuse PCP: none - Physicial Exam PE: 04/20/18 01:53 GENERAL: Awake, alert, and fully oriented, in no acute distress HEAD: No signs of trauma EYES: PERRLA, EOMI, sclera anicteric, conjunctiva clear ENT: Auricles normal inspection, hearing grossly normal, nares patent, oropharynx clear without exudates. Moist mucosa NECK: Normal ROM, supple, no lymphadenopathy, JVD, or masses LUNGS: Breath sounds equal, clear to auscultation bilaterally. No wheezes, and no crackles HEART: Regular rate and rhythm, normal S1 and S2, no murmurs, rubs or gallops ABDOMEN: Soft, nontender, normoactive bowel sounds. No guarding, no rebound. No masses EXTREMITIES: Normal range of motion, no edema. No clubbing or cyanosis. No cords, erythema, or tenderness NEUROLOGICAL: Cranial nerves II through XII grossly intact. Normal speech, normal gait SKIN: Warm, Dry, normal turgor, no rashes or lesions noted. - Medical Decision Making 04/20/18 01:53 Documentation prepared by JHONNY Chicas, acting as medical diagnostic radiographer for Osiris Barboza MD. <Jerod Dempsey - Last Filed: 04/20/18 01:53> - Resident Resident Name: Juan Reynolds - ED Attending Attestation I have performed the following: I have examined & evaluated the patient, The case was reviewed & discussed with the resident, I agree w/resident's findings & plan - Medical Decision Making 04/20/18 02:13 Pt having an anxiety attack; he refuses to believe it. Exam normal. Pulsox normal. VSS normal. EKG normal; Pt refusing to take 10mg methadone that we offered him. Pt advised to go see a therapist. 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 He is in denial that he has anxiety; tells me that he has no stress and nothing to be anxious about. Pt keeps repeating that he has 2 years of being sober (after his best friend of an OD) just relapsed at new year's. <Osiris Barboza - Last Filed: 04/20/18 06:13> Heart Score/ECG Review - ECG Intrepretation Rhythm: Regular Rhythm - Souris Souris: Normal - P and FL Delta Wave(s) Present: No WPW: No - ST and T Early Repolarization: No Non Specific ST-T Wave changes: No Flattened T Waves: No Prolonged Q-T Interval: No - ECG Impressions Normal ECG: Yes Non-specific ST Elevation: No Ischemic Changes: No Bradycardia: No Torsades roula Pointes: No WPW: No <Osiris Barboza - Last Filed: 04/20/18 06:13>
[2018-04-20] MEDS ORDERED: METHADONE HCL 10 MG TABLET PO ONE (01:46)
[2018-04-20 02:42] VITALS: BP 135/78; PULSE 74; TEMP 98
--- NOTE | 2018-04-20 09:49 | EKG ---
Test Reason : Blood Pressure : / mmHG Vent. Rate : 074 BPM Atrial Rate : 074 BPM P-R Int : 124 ms QRS Dur : 088 ms QT Int : 398 ms P-R-T Axes : 068 088 068 degrees QTc Int : 441 ms NORMAL SINUS RHYTHM WITH SINUS ARRHYTHMIA NORMAL ECG WHEN COMPARED WITH ECG OF 13-APR-2018 03:02, NO SIGNIFICANT CHANGE WAS FOUND Confirmed by JOSE ALBERTO VALDES MD ([id number]) on 04/20/2018 9:48:46 AM Referred By: Confirmed By:JOSE ALBERTO VALDES MD
== END 2018-04-20 02:42 | disposition home or self-care (01) ==
LOC: JER 00:29
DX: R00.2 Palpitations (principal); F11.20 Opioid dependence, uncomplicated
CPT/HCPCS: 93005; 93010; 99282-25

== ENCOUNTER 2018-06-19 11:33 | Inpatient (IN) | payer OTHER ==
[2018-06-19 11:57] VITALS: BMI 26.4
--- NOTE | 2018-06-19 13:44 | HP ---
COWS - Scale Resting Pulse: 1= [place] 81-100 Sweatin= Chills/Flushing Restless Observation: 3= Extraneous Movement Pupil Size: 1= Pupils >than Normal Bone or Joint Aches: 2= Severe Diffuse Aches Runny Nose/ Eye Tearin= Runny Nose/Eyes GI Upset > 30mins: 2= Nausea/Diarrhea Tremor Observation: 2= Slight Tremor Visible Yawning Observation: 1= 1-2x During Session Anxiety or Irritability: 2=Irritable/Anxious Goose Flesh Skin: 0=Smooth Skin COWS Score: 17 CIWA Score - Admission Criteria OASAS Guidelines: Admission for Medically Managed Detox: Requires at least one of the followin. CIWA greater than 12 2. Seizures within the past 24 hours 3. Delirium tremens within the past 24 hours 4. Hallucinations within the past 24 hours 5. Acute intervention needed for co occurring medical disorder 6. Acute intervention needed for co occurring psychiatric disorder 7. Severe withdrawal that cannot be handled at a lower level of care (continued vomiting, continued diarrhea, abnormal vital signs) requiring intravenous medication and/or fluids 8. Admission ROS S - HPI Chief Complaint: i need help to stop using heroin,cocaine,marijuana,xanax,oxycodone Allergies/Adverse Reactions: Allergies Allergy/AdvReac Type Severity Reaction Status Date / Time diphenhydramine HCl Allergy Severe Swelling Verified 06/19/18 12:19 [From Benadryl] Penicillins Allergy Severe Rash Verified 06/19/18 12:19 History of Present Illness: this 23 years old male with heroin,cocaine,marijuana,oxycodone,xanax dependence seeking detox,withdrawal symptom, multiple admissions in detox but keep relapsing last detox [facility] 04/25 ,completed nicotine dependence 1 pack/day longest period of sobriety 2 years plan for rehab after detox Exam Limitations: No Limitations - Ebola screening Have you traveled outside of the country in the last 21 days: No Have you had contact with anyone from an Ebola affected area: No Have you been sick,other than usual withdrawal symptoms: No Do you have a fever: No - Review of Systems Constitutional: Chills, Loss of Appetite, Malaise, Night Sweats, Changes in sleep, Weakness EENT: reports: Tearing, Nose Congestion Respiratory: reports: No Symptoms reported Cardiac: reports: No Symptoms Reported GI: reports: Diarrhea, Nausea, Vomiting, Abdominal cramping : reports: No Symptoms Reported Musculoskeletal: reports: Back Pain, Joint Pain, Muscle Pain, Joint Stiffness Integumentary: reports: Dryness Neuro: reports: Headache, Tremors Endocrine: reports: No Symptoms Reported Hematology: reports: No Symptoms Reported Psychiatric: reports: No Sypmtoms Reported, Judgement Intact, Mood/Affect Appropiate, Orientated x3, other Other Systems: Reviewed and Negative Patient History - Patient Medical History Hx Anemia: No Hx Asthma: Yes (used to be on albuterol inhaler) Hx Chronic Obstructive Pulmonary Disease (COPD): No Hx Cancer: No Hx Cardiac Disorders: No Hx Congestive Heart Failure: No Hx Hypertension: No Hx Hypercholesterolemia: No Hx Pacemaker: No HX Cerebrovascular Accident: No Hx Seizures: No Hx Dementia: No Hx Diabetes: No Hx Gastrointestinal Disorders: No Hx Liver Disease: No Hx Genitourinary Disorders: No Hx Sexually Transmitted Disorders: No Hx Renal Disease (ESRD): No Hx Thyroid Disease: No Hx Human Immunodeficiency Virus (HIV): No (04/25 negative) Hx Hepatitis C: No Hx Depression: No Hx Suicide Attempt: No Hx Bipolar Disorder: No Hx Schizophrenia: No Other Medical History: no suicidal,no homicidal - Patient Surgical History Past Surgical History: No Hx Neurologic Surgery: No Hx Cataract Extraction: No Hx Cardiac Surgery: No Hx Lung Surgery: No Hx Breast Surgery: No Hx Breast Biopsy: No Hx Abdominal Surgery: No Hx Appendectomy: No Hx Cholecystectomy: No Hx Genitourinary Surgery: No Hx Section: No Hx Orthopedic Surgery: No Anesthesia Reaction: No - PPD History Previous Implant?: Yes Documented Results: Negative w/proof Date: 04/15/18 Results: 0mm PPD to be Administered?: No - Reproductive History Patient : No - Smoking Cessation Smoking history: Current every day smoker Have you smoked in the past 12 months: Yes Aproximately how many cigarettes per day: 20 Cigars Per Day: 0 Hx Chewing Tobacco Use: No Initiated information on smoking cessation: Yes 'Breaking Loose' booklet given: 06/19/18 - Substance & Tx. History Hx Alcohol Use: No Hx Substance Use: Yes Substance Use Type: Cocaine, Heroin, Marijuana, Tranquilizers Hx Substance Use Treatment: Yes ([facility] 04/25 completed) - Substances Abused Heroin Route: Inhalation Frequency: Daily Amount used: 2 bundle Age of first use: 17 Date of Last Use: 06/19/18 Cocaine Route: Inhalation Frequency: 1-3 times last 30 days Amount used: 2 grams Age of first use: 16 Date of Last Use: 06/17/18 Marijuana/Hashish Route: Smoking Frequency: Daily Amount used: 20$ Age of first use: 13 Date of Last Use: 06/18/18 Alprazolam (Xanax) Route: Oral Frequency: 1-3 times last 30 days Amount used: 2mgs Age of first use: 18 Date of Last Use: 06/17/18 Oxycontin Route: Oral Frequency: Daily Amount used: 30 mgs Age of first use: 17 Date of Last Use: 06/17/18 Family Disease History - Family Disease History Family Disease History: Other: Father (hepatitis c treated) Admission Physical Exam S - Vital Signs Vital Signs: Vital Signs - 24 hr 06/19/18 11:56 Temperature 97.6 F Pulse Rate 81 Respiratory 20 Rate Blood Pressure 128/76 - Physical General Appearance: Yes: Moderate Distress, Tremorous, Irritable, Sweating, Anxious HEENTM: Yes: Normal ENT Inspection, GREGORY, Pharynx Normal Respiratory: Yes: Within Normal Limits, Lungs Clear, Normal Breath Sounds Neck: Yes: Within Normal Limits, Supple, Trachea in good position Breast: Yes: Within Normal Limits Cardiology: Yes: Within Normal Limits, Regular Rhythm, Regular Rate, S1, S2 Abdominal: Yes: Within Normal Limits, Normal Bowel Sounds, Non Tender, Flat, Soft Genitourinary: Yes: Within Normal Limits Back: Yes: Muscle Spasm Musculoskeletal: Yes: Back pain, Joint Stiffness, Muscle Pain Extremities: Yes: Normal Range of Motion, Tremors Neurological: Yes: [employer] II-XII NML intact, Alert, Motor Strength 5/5 Integumentary: Yes: Dry Lymphatic: Yes: Within Normal Limits - Diagnostic (1) Opioid dependence with withdrawal Current Visit: No Status: Acute (2) Asthma Current Visit: No Status: Chronic Qualifiers: Asthma severity: mild intermittent Asthma complication type: uncomplicated Comment: last ventolin "months" ago (3) Nicotine dependence Current Visit: No Status: Chronic Qualifiers: Nicotine product type: cigarettes Substance use status: uncomplicated Qualified Code(s): F17.210 - Nicotine dependence, cigarettes, uncomplicated (4) Cocaine dependence Current Visit: Yes Status: Acute (5) Cannabis dependence Current Visit: Yes Status: Acute (6) Eczema Current Visit: No Status: Chronic Qualifiers: Eczema type: other Qualified Code(s): L30.8 - Other specified dermatitis Comment: feet Cleared for Admission S - Detox or Rehab [facility] Level of Care: Medically Managed Detox Regimen/Protocol: Methadone [facility] Breath Alcohol Content Breath Alcohol Content: 0 Urine Drug Screen - Results Drug Screen Negative: No Urine Drug Screen Results: THC-Marijuana, WALTER-Cocaine, OPI-Opiates, BZO- Benzodiazepines, OXY-Oxycodone Inpatient Rehab Admission - Rehab Decision to Admit Inpatient rehab admission?: No
[2018-06-19] MEDS ORDERED: BISMUTH SUBSALICYLATE 524 MG/30 ML UD PO PRN (13:55)
[2018-06-19] MEDS ORDERED: MAGNESIUM HYDROX 2400MG/30ML ORAL SUSPENSION 30 ML CUP PO PRN (13:55)
[2018-06-19] MEDS ORDERED: MELATONIN 5 MG TABLETS PO PRN (13:55)
[2018-06-19] MEDS ORDERED: NICOTINE POLACRILEX 2 MG GUM BUC PRN (13:55)
[2018-06-19] MEDS ORDERED: IBUPROFEN 400 MG TABLET (FP) PO PRN (13:55)
[2018-06-19] MEDS ORDERED: ACETAMINOPHEN 325 MG TABLET (FP) PO PRN ×2 (13:55)
[2018-06-19] MEDS ORDERED: MAG HYDROX/AL HYDROX/SIMETH 30 ML UNIT-DOSE CUP PO PRN (13:55)
[2018-06-19] MEDS ORDERED: MAGNESIUM CITRATE 300 ML BOTTLE PO PRN (13:55)
[2018-06-19] MEDS ORDERED: MENTHOL/PHENOL 1 EACH UD MM PRN (13:55)
[2018-06-19] MEDS ORDERED: cloNIDine HCL 0.1 MG TABLET PO PRN (13:55)
[2018-06-19] MEDS ORDERED: METHADONE HCL 10 MG TABLET (FOR DETOX USE ONLY) PO ONE ×2 (15:00→23:00)
[2018-06-19] MEDS: NICOTINE 21 MG/24 HOURS TOPICAL PATCH TD SCH (15:20)
[2018-06-19 16:29] LABS: URINE APPEARANCE CLEAR; URINE BILIRUBIN NEGATIVE (<2.0 mg/dL); URINE COLOR YELLOW; URINE GLUCOSE (UA) NEGATIVE (NEGATIVE); URINE KETONE NEGATIVE (NEGATIVE); URINE LEUK ESTERASE NEGATIVE (NEGATIVE); URINE NITRITE NEGATIVE (NEGATIVE); URINE PROTEIN NEGATIVE (NEGATIVE); URINE UROBILINOGEN NEGATIVE mg/dL (0.2-1.0)
[2018-06-19] MEDS: THIAMINE HCL 100 MG TABLET (FP) PO SCH (22:11)
[2018-06-19] MEDS: diazePAM 5 MG TABLET PO PRN (22:12)
[2018-06-20] MEDS ORDERED: METHADONE HCL 10 MG TABLET (FOR DETOX USE ONLY) PO ONE (10:00)
--- NOTE | 2018-06-20 10:30 | PN ---
BHS COWS - Scale Resting Pulse: 0= [place] 80 or Below Sweatin= Chills/Flushing Restless Observation: 1= Difficult to Sit Still Pupil Size: 0= Normal to Room Light Bone or Joint Aches: 2= Severe Diffuse Aches Runny Nose/ Eye Tearin= Nasal Congestion GI Upset > 30mins: 2= Nausea/Diarrhea Tremor Observation of Outstretched Hands: 2= Slight Tremor Visible Yawning Observation: 0= None Anxiety or Irritability: 1=Feels Anxious/Irritable Goose Flesh Skin: 0=Smooth Skin COWS Score: 10 BHS Progress Note (SOAP) Subjective: Interrupted sleep, tremors, generalized weakness, back and generalized pain Objective: 06/20/18 10:30 Last Vital Signs Temp Pulse Resp BP Pulse Ox 97.7 F 67 18 108/58 L 06/20/18 09:59 06/20/18 09:59 06/20/18 09:59 06/20/18 09:59 Laboratory Last Values Urine Color Yellow 06/19/18 15:29 Urine Appearance Clear 06/19/18 15:29 Urine pH 5.0 (5.0-8.0) 06/19/18 15:29 Ur Specific [place] 1.024 (1.010-1.035) 06/19/18 15:29 Urine Protein Negative (NEGATIVE) 06/19/18 15:29 Urine Glucose (UA) Negative (NEGATIVE) 06/19/18 15:29 Urine Ketones Negative (NEGATIVE) 06/19/18 15:29 Urine Blood Negative (NEGATIVE) 06/19/18 15:29 Urine Nitrite Negative (NEGATIVE) 06/19/18 15:29 Urine Bilirubin Negative (<2.0 mg/dL) 06/19/18 15:29 Urine Urobilinogen Negative mg/dL (0.2-1.0) 06/19/18 15:29 Ur Leukocyte Esterase Negative (NEGATIVE) 06/19/18 15:29 UA noted, wnl Labs pending Assessment: 06/20/18 10:30 Withdrawal sx Plan: Continue detox
[2018-06-20 10:43] LABS: HEMATOCRIT 38.1 % (35.4-49); HEMOGLOBIN 13.1 GM/dL (11.7-16.9); MCH 32.2 pg (25.7-33.7); MCHC 34.3 g/dl (32.0-35.9); MEAN PLT VOLUME 10.1 fl (7.5-11.1); PLATELET COUNT 238 K/MM3 (134-434); RBC 4.06 M/mm3 (4.00-5.60); RDW 13.5 % (11.9-15.9); WHITE BLOOD COUNT 7.5 K/mm3 (4.0-10.0)
[2018-06-20 10:45] LABS: ALBUMIN 3.9 g/dl (3.4-5.0); ALK PHOS 68 U/L (45-117); ANION GAP 5 MMOL/L (8-16); BILIRUBIN,TOTAL 0.7 mg/dL (0.2-1); BLOOD UREA NITROGEN 18 mg/dL (7-18); CALCIUM 8.9 mg/dL (8.5-10.1); CHLORIDE 103 mmol/L (98-107); CO2 30 mmol/L (21-32); GLUCOSE,RANDOM 91 mg/dL (74-106); POTASSIUM 4.1 mmol/L (3.5-5.1); SGOT/AST 25 U/L (15-37); SGPT/ALT 23 U/L (13-61); SODIUM 139 mmol/L (136-145); TOT PROT 6.6 g/dl (6.4-8.2)
[2018-06-20] MEDS: PRENATAL VITAMINS W/ FOLIC ACID TABLET (FP) PO SCH (11:37)
[2018-06-20] MEDS: HYDROCORTISONE 1% TOPICAL CREAM 30 GM TUBE TP SCH ×2 (11:38→22:34)
[2018-06-20] MEDS: NICOTINE 21 MG/24 HOURS TOPICAL PATCH TD SCH (11:41)
[2018-06-20] MEDS: diazePAM 5 MG TABLET PO PRN (22:34)
[2018-06-20] MEDS: THIAMINE HCL 100 MG TABLET (FP) PO SCH (22:34)
[2018-06-20] MEDS: METHOCARBAMOL 500 MG TABLET PO PRN (22:36)
[2018-06-21] MEDS: diazePAM 5 MG TABLET PO PRN (06:51)
[2018-06-21] MEDS ORDERED: METHADONE HCL 10 MG TABLET (FOR DETOX USE ONLY) PO ONE (10:00)
[2018-06-21] MEDS: NICOTINE 21 MG/24 HOURS TOPICAL PATCH TD SCH (10:26)
[2018-06-21] MEDS: HYDROCORTISONE 1% TOPICAL CREAM 30 GM TUBE TP SCH ×2 (10:26→22:55)
[2018-06-21] MEDS: PRENATAL VITAMINS W/ FOLIC ACID TABLET (FP) PO SCH (10:26)
[2018-06-21] MEDS: METHOCARBAMOL 500 MG TABLET PO PRN ×2 (10:27→22:53)
--- NOTE | 2018-06-21 11:44 | PN ---
BHS COWS - Scale Resting Pulse: 0= [place] 80 or Below Sweatin= Chills/Flushing Restless Observation: 1= Difficult to Sit Still Pupil Size: 1= Pupils >than Normal Bone or Joint Aches: 1= Mild Discomfort Runny Nose/ Eye Tearin= Runny Nose/Eyes GI Upset > 30mins: 1= Stomach Cramp Tremor Observation of Outstretched Hands: 1= Tremor [place], Not Seen Yawning Observation: 2= >3x During Session Anxiety or Irritability: 2=Irritable/Anxious Goose Flesh Skin: 0=Smooth Skin COWS Score: 12 S Progress Note (SOAP) Subjective: c/o back pain, body aches, chills, anxious, interrupted sleep Objective: 06/21/18 11:41 Vital Signs Temperature 97.9 F 06/21/18 09:31 Pulse Rate 64 06/21/18 09:31 Respiratory Rate 18 06/21/18 09:31 Blood Pressure 102/51 L 06/21/18 09:31 O2 Sat by Pulse Oximetry (%) Laboratory Last Values WBC 7.5 K/mm3 (4.0-10.0) 06/20/18 05:40 RBC 4.06 M/mm3 (4.00-5.60) 06/20/18 05:40 Hgb 13.1 GM/dL (11.7-16.9) 06/20/18 05:40 Hct 38.1 % (35.4-49) 06/20/18 05:40 MCV 94.0 fl (80-96) 06/20/18 05:40 MCH 32.2 pg (25.7-33.7) 06/20/18 05:40 MCHC 34.3 g/dl (32.0-35.9) 06/20/18 05:40 RDW 13.5 % (11.9-15.9) 06/20/18 05:40 Plt Count 238 K/MM3 (134-434) D 06/20/18 05:40 MPV 10.1 fl (7.5-11.1) 06/20/18 05:40 Sodium 139 mmol/L (136-145) 06/20/18 05:40 Potassium 4.1 mmol/L (3.5-5.1) 06/20/18 05:40 Chloride 103 mmol/L (98-107) 06/20/18 05:40 Carbon Dioxide 30 mmol/L (21-32) 06/20/18 05:40 Anion Gap 5 MMOL/L (8-16) L 06/20/18 05:40 BUN 18 mg/dL (7-18) 06/20/18 05:40 Creatinine 1.0 mg/dL (0.55-1.3) 06/20/18 05:40 Creat Clearance w eGFR 91.80 (>60) 06/20/18 05:40 Random Glucose 91 mg/dL (74-106) 06/20/18 05:40 Calcium 8.9 mg/dL (8.5-10.1) 06/20/18 05:40 Total Bilirubin 0.7 mg/dL (0.2-1) 06/20/18 05:40 AST 25 U/L (15-37) 06/20/18 05:40 ALT 23 U/L (13-61) 06/20/18 05:40 Alkaline Phosphatase 68 U/L (45-117) 06/20/18 05:40 Total Protein 6.6 g/dl (6.4-8.2) 06/20/18 05:40 Albumin 3.9 g/dl (3.4-5.0) 06/20/18 05:40 Urine Color Yellow 06/19/18 15:29 Urine Appearance Clear 06/19/18 15:29 Urine pH 5.0 (5.0-8.0) 06/19/18 15:29 Ur Specific [place] 1.024 (1.010-1.035) 06/19/18 15:29 Urine Protein Negative (NEGATIVE) 06/19/18 15:29 Urine Glucose (UA) Negative (NEGATIVE) 06/19/18 15:29 Urine Ketones Negative (NEGATIVE) 06/19/18 15: Urine Blood Negative (NEGATIVE) 06/19/18 15: Urine Nitrite Negative (NEGATIVE) 06/19/18 15: Urine Bilirubin Negative (<2.0 mg/dL) 06/19/18 15: Urine Urobilinogen Negative mg/dL (0.2-1.0) 06/19/18 15:29 Ur Leukocyte Esterase Negative (NEGATIVE) 06/19/18 15:29 RPR Titer Nonreactive (NONREACTIVE) 06/20/18 05:40 labs noted AOx3 no distress + rhinorrhea + back pain full ROM ambulating in the unit Assessment: withdrawal sx Increase PO fluids continue detox continue to monitor 06/21/18 11:43
[2018-06-21] MEDS: THIAMINE HCL 100 MG TABLET (FP) PO SCH (22:51)
[2018-06-22] MEDS: diazePAM 5 MG TABLET PO PRN (04:58)
[2018-06-22] MEDS: METHOCARBAMOL 500 MG TABLET PO PRN ×2 (05:00→23:09)
[2018-06-22] MEDS ORDERED: METHADONE HCL 10 MG TABLET (FOR DETOX USE ONLY) PO ONE (10:00)
[2018-06-22] MEDS: PRENATAL VITAMINS W/ FOLIC ACID TABLET (FP) PO SCH (10:56)
[2018-06-22] MEDS: NICOTINE 21 MG/24 HOURS TOPICAL PATCH TD SCH (10:57)
[2018-06-22] MEDS: HYDROCORTISONE 1% TOPICAL CREAM 30 GM TUBE TP SCH ×2 (10:57→22:30)
--- NOTE | 2018-06-22 14:40 | PN ---
BHS Progress Note (SOAP) Subjective: Fatigue, Anxious, Interrupted Sleep. Objective: PATIENT A & O X 3, OBSERVED AMBULATING ON UNIT. IN NO ACUTE DISTRESS. 06/22/18 14:40 Vital Signs Temperature 97.9 F 06/22/18 13:24 Pulse Rate 55 L 06/22/18 13:24 Respiratory Rate 18 06/22/18 13:24 Blood Pressure 119/78 06/22/18 13:24 O2 Sat by Pulse Oximetry (%) Laboratory Tests 06/19/18 06/20/18 06/20/18 15:29 05:40 05:40 WBC 7.5 RBC 4.06 Hgb 13.1 Hct 38.1 MCV 94.0 MCH 32.2 MCHC 34.3 RDW 13.5 Plt Count 238 D MPV 10.1 Sodium 139 Potassium 4.1 Chloride 103 Carbon Dioxide 30 Anion Gap 5 L BUN 18 Creatinine 1.0 Creat Clearance w eGFR 91.80 Random Glucose 91 Calcium 8.9 Total Bilirubin 0.7 AST 25 ALT 23 Alkaline Phosphatase 68 Total Protein 6.6 Albumin 3.9 Urine Color Yellow Urine Appearance Clear Urine pH 5.0 Ur Specific [place] 1.024 Urine Protein Negative Urine Glucose (UA) Negative Urine Ketones Negative Urine Blood Negative Urine Nitrite Negative Urine Bilirubin Negative Urine Urobilinogen Negative Ur Leukocyte Esterase Negative RPR Titer 06/20/18 05:40 WBC RBC Hgb Hct MCV MCH MCHC RDW Plt Count MPV Sodium Potassium Chloride Carbon Dioxide Anion Gap BUN Creatinine Creat Clearance w eGFR Random Glucose Calcium Total Bilirubin AST ALT Alkaline Phosphatase Total Protein Albumin Urine Color Urine Appearance Urine pH Ur Specific [place] Urine Protein Urine Glucose (UA) Urine Ketones Urine Blood Urine Nitrite Urine Bilirubin Urine Urobilinogen Ur Leukocyte Esterase RPR Titer Nonreactive LABS NOTED. Assessment: 06/22/18 14:41 WITHDRAWAL SYMPTOMS. Plan: CONTINUE DETOX. INCREASE DAILY PO FLUID INTAKE. PATIENT SCHEDULED FOR D/C TOMORROW.
[2018-06-22] MEDS: THIAMINE HCL 100 MG TABLET (FP) PO SCH (22:30)
[2018-06-23] MEDS ORDERED: METHADONE HCL 5 MG TABLET (FOR DETOX USE ONLY) PO ONE (06:00)
--- NOTE | 2018-06-23 08:32 | DS ---
[facility] Detox Discharge Summary Admission Date: 06/19/18 Discharge Date: 06/23/18 - History Present History: Cannabis Dependence, Cocaine Dependence, Opioid Dependence - Physical Exam Results Vital Signs: Vital Signs Temperature 97.5 F L 06/23/18 06:38 Pulse Rate 54 L 06/23/18 06:38 Respiratory Rate 18 06/23/18 06:38 Blood Pressure 113/56 L 06/23/18 06:38 O2 Sat by Pulse Oximetry (%) - Treatment Hospital Course: Detox Protocol Followed, Detoxed Safely, Responded well, Discharged Condition Good, Rehab Referral Accepted - Medication Discharge Medications: Ambulatory Orders NK [No Known Home Medication] 04/13/18 - Diagnosis (1) Cannabis dependence Current Visit: Yes Status: Chronic (2) Cocaine dependence Current Visit: Yes Status: Chronic Qualifiers: Substance use status: uncomplicated Qualified Code(s): F14.20 - Cocaine dependence, uncomplicated (3) Hematuria Current Visit: No Status: Acute Qualifiers: Hematuria type: unspecified type Qualified Code(s): R31.9 - Hematuria, unspecified (4) Opioid dependence with withdrawal Current Visit: Yes Status: Chronic (5) Palpitations Current Visit: No Status: Acute (6) Asthma Current Visit: No Status: Chronic Qualifiers: Asthma severity: mild intermittent Asthma complication type: uncomplicated (7) Asthma Current Visit: No Status: Chronic Qualifiers: Asthma severity: mild Asthma persistence: intermittent Asthma complication type: uncomplicated Qualified Code(s): J45.20 - Mild intermittent asthma, uncomplicated (8) Eczema Current Visit: No Status: Chronic Qualifiers: Eczema type: other Qualified Code(s): L30.8 - Other specified dermatitis (9) Nicotine dependence Current Visit: No Status: Chronic Qualifiers: Nicotine product type: cigarettes Substance use status: uncomplicated Qualified Code(s): F17.210 - Nicotine dependence, cigarettes, uncomplicated (10) Psoriasis Current Visit: No Status: Chronic - AMA Did Patient Leave Against Medical Advice: No ([facility])
[2018-06-23 09:26] VITALS: BP 124/62; PULSE 62; TEMP 97.9
== END 2018-06-23 09:49 | disposition home or self-care (01) | DRG 773 ==
LOC: YASAS 11:33 → Y6N 14:23
PROVIDERS: ADMIT Surgery; ATTEND Surgery
PROC: HZ2ZZZZ Detoxification Services for Substance Abuse Treatment (ICD-10-PCS; principal; 2018-06-19)
DX: F11.23 Opioid dependence with withdrawal (principal); F14.20 Cocaine dependence, uncomplicated; F12.20 Cannabis dependence, uncomplicated; F17.210 Nicotine dependence, cigarettes, uncomplicated; J45.20 Mild intermittent asthma, uncomplicated; L30.9 Dermatitis, unspecified; L40.9 Psoriasis, unspecified; J34.89 Other specified disorders of nose and nasal sinuses; M54.9 Dorsalgia, unspecified; R00.2 Palpitations; R31.9 Hematuria, unspecified; Z88.0 Allergy status to penicillin; Z88.8 Allergy status to other drugs, medicaments and biological substances
CPT/HCPCS: 36415; 80053; 81003; 85027; 86593; J0735

== ENCOUNTER 2019-12-13 18:11 | Emergency (ER) | payer OTHER ==
--- NOTE | 2019-12-13 18:17 | PDOC ---
Rapid Medical Evaluation Time Seen by Provider: 12/13/19 18:13 Medical Evaluation: Allergies Allergy/AdvReac Type Severity Reaction Status Date / Time diphenhydramine HCl Allergy Severe Swelling Verified 06/19/18 12:19 [From Benadryl] Penicillins Allergy Severe Rash Verified 06/19/18 12:19 12/13/19 18:14 I have performed a brief in-person evaluation of this patient. CC: "My feet are swollen." PE: dependant edema to BLE. Lungs CTAB. RRR. No m/r/g Orders: nothing Patient will proceed to ED for further evaluation. Discharge Disposition - Diagnosis Edema - Referrals - Patient Instructions - Post Discharge Activity
[2019-12-13 18:20] VITALS: BP 123/72; PULSE 84; TEMP 98; BMI 26.4
[2019-12-13 20:20] LABS: INR 1.04 (0.83-1.09); PROTHROMBIN TIME (PATIENT) 12.3 SEC (9.7-13.0)
[2019-12-13 20:28] LABS: BASO % 0.4 % (0-2.0); EOS % 2.4 % (0-4.5); HEMATOCRIT 39.3 % (35.4-49); HEMOGLOBIN 13.4 GM/dL (11.7-16.9); LYMPH % 27.4 % (8-40); MCHC 34.2 g/dl (32.0-35.9); MEAN CELL VOLUME 90.7 fl (80-96); MONO % 6.6 % (3.8-10.2); NEUT % 63.2 % (42.8-82.8); PLATELET COUNT 203 K/MM3 (134-434); RBC 4.33 M/mm3 (4.00-5.60); WHITE BLOOD COUNT 8.4 K/mm3 (4.0-10.0)
[2019-12-13 20:34] LABS: ALBUMIN 3.4 g/dl (3.4-5.0); ALK PHOS 66 U/L (45-117); ANION GAP 3 MMOL/L (8-16); BILIRUBIN,TOTAL 0.3 mg/dL (0.2-1); BLOOD UREA NITROGEN 13.2 mg/dL (7-18); CALCIUM 8.7 mg/dL (8.5-10.1); CHLORIDE 103 mmol/L (98-107); CO2 31 mmol/L (21-32); CREATININE 0.9 mg/dL (0.55-1.3); GLUCOSE,RANDOM 87 mg/dL (74-106); N-TERMINAL BNP 13.6 pg/ml (5-125); POTASSIUM 4.2 mmol/L (3.5-5.1); SGOT/AST 31 U/L (15-37); SGPT/ALT 28 U/L (13-61); SODIUM 137 mmol/L (136-145); TOT PROT 6.3 g/dl (6.4-8.2)
[2019-12-13 20:40] LABS: OPIATES, URI NEGATIVE ng/ml (CUTOFF=300); PHENCYCLIDINE,URINE NEGATIVE ng/ml (CUTOFF=25); URINE BARBITURATES NEGATIVE ng/ml (CUTOFF=200); URINE BENZODIAZEPINES NEGATIVE ng/ml (CUTOFF=200)
[2019-12-13 20:43] LABS: COCAINE, UR NEGATIVE ng/ml (CUTOFF=300); METHADONE, UR NEGATIVE ng/ml (CUTOFF=300); URINE AMPHETAMINES NEGATIVE ng/ml (CUTOFF=500)
[2019-12-13 21:07] LABS: ERYTHROCYTE SEDIMENTATION RATE 21 mm/hr (0-10)
[2019-12-13] MEDS ORDERED: ACETAMINOPHEN 500 MG TABLET (FP) PO ONE (21:22)
[2019-12-13] MEDS ORDERED: ACETAMINOPHEN 325 MG TABLET (FP) ONE (21:28)
--- NOTE | 2019-12-13 22:29 | PDOC ---
History of Present Illness - General Chief Complaint: Edema Stated Complaint: FOOT SWOLLEN Time Seen by Provider: 12/13/19 18:13 - History of Present Illness Initial Comments: 12/13/19 22:25 24-year-old male no comorbidities presents for evaluation of bilateral leg pain x1 week no comorbidities no systemic symptoms no precipitating traumatic event Past History - Medical History Allergies/Adverse Reactions: Allergies Allergy/AdvReac Type Severity Reaction Status Date / Time diphenhydramine HCl Allergy Severe Swelling Verified 12/13/19 18:14 [From Benadryl] Penicillins Allergy Severe Rash Verified 12/13/19 18:14 Home Medications: Ambulatory Orders NK [No Known Home Medication] 04/13/18 Anemia: No Asthma: Yes (used to be on albuterol inhaler) Cancer: No Cardiac Disorders: No CVA: No COPD: No CHF: No Dementia: No Diabetes: No GI Disorders: No Disorders: No HTN: No Hypercholesterolemia: No Kidney Stones: No Liver Disease: No Seizures: No Thyroid Disease: No - Surgical History Abdominal Surgery: No Appendectomy: No Cardiac Surgery: No Cholecystectomy: No Lung Surgery: No Neurologic Surgery: No Orthopedic Surgery: No - Reproductive History Testicular Surgery: No - Psycho-Social/Smoking History Smoking History: Current every day smoker Have you smoked in the past 12 months: Yes Number of Cigarettes Smoked Daily: 20 Cigars Per Day: 0 Information on smoking cessation initiated: Yes 'Breaking Loose' booklet given: 06/19/18 - Substance Abuse Hx (Audit-C & DAST Scrn) How often the patient has a drink containing alcohol: Monthly or less Score: In Men: 4 or > Positive; In Women: 3 or > Positive: 1 Screen Result (Pos requires Nsg. Audit-10AR): Negative In the last yr the pt used illegal drug/Rx for NonMed reason: Yes Score: Yes response is considered Positive: 1 Screen Result (Positive result requires Nsg. DAST-10): Positive Review of Systems - Review of Systems Constitutional: No: Fever Musculoskeletal: Yes: See HPI *Physical Exam - Vital Signs Last Vital Signs Temp Pulse Resp BP Pulse Ox 98 F 84 18 123/72 99 12/13/19 18:15 12/13/19 18:15 12/13/19 18:15 12/13/19 18:15 12/13/19 18:15 - Physical Exam 12/13/19 22:26 GENERAL: The patient is awake, alert, and fully oriented, in no acute distress. HEAD: Normal with no signs of trauma. EYES: sclera anicteric, conjunctiva clear. ENT: Ears normal tympanic membranes normal oropharynx clear uvula midline NECK: Normal range of motion LUNGS: Breath sounds equal, clear to auscultation bilaterally. No wheezes, and no crackles. HEART: S1 and S2 without murmur, rub or gallop. ABDOMEN: Soft, nontender, normoactive bowel sounds. No guarding, no rebound. No masses. EXTREMITIES: Normal range of motion, 1+ edema symmetric in bilateral lower extremities thighs and calves are otherwise soft and nontender. No clubbing or cyanosis. No cords, erythema, or tenderness. NEUROLOGICAL: Cranial nerves II through XII grossly intact. PSYCH: Normal mood, normal affect. SKIN: Warm, Dry, normal turgor, no rashes or lesions noted. ED Treatment Course - LABORATORY CBC & Chemistry Diagram: 12/13/19 19:50 12/13/19 19:50 - ADDITIONAL ORDERS Additional order review: Laboratory Results 12/13/19 12/13/19 12/13/19 19:50 19:50 19:50 PT with INR 12.30 INR 1.04 Sodium 137 Potassium 4.2 Chloride 103 Carbon Dioxide 31 Anion Gap 3 L BUN 13.2 Creatinine 0.9 Est GFR (CKD-EPI)AfAm 137.10 Est GFR (CKD-EPI)NonAf 118.29 Random Glucose 87 Calcium 8.7 Total Bilirubin 0.3 AST 31 ALT 28 Alkaline Phosphatase 66 Creatine Kinase 268 Creatine Kinase Index 0.7 CK-MB (CK-2) 2.0 Troponin I < 0.02 C-Reactive Protein 2.5 H B-Natriuretic Peptide 13.6 Total Protein 6.3 L Albumin 3.4 Opiates Screen Negative Methadone Screen Negative Barbiturate Screen Negative Phencyclidine Screen Negative Ur Amphetamines Screen Negative MDMA (Ecstasy) Screen Negative Benzodiazepines Screen Negative Cocaine Screen Negative U Marijuana (THC) Screen Negative 12/13/19 19:50 RBC 4.33 MCV 90.7 MCHC 34.2 RDW 13.0 MPV 10.0 Neutrophils % 63.2 Lymphocytes % 27.4 Monocytes % 6.6 Eosinophils % 2.4 Basophils % 0.4 - RADIOLOGY Radiology Studies Ordered: Category Date Time Status DUPLEX VASCUL US-2LEGS [US] Stat Ultrasound 12/13/19 19:24 Taken - Medications Given in the ED: ED Medications Discontinued Medications Generic Name Dose Route Start Last Admin Trade Name Elaine PRN Reason Stop Dose Admin Acetaminophen 1,000 mg 12/13/19 21:22 12/13/19 21:33 Tylenol - PO 12/13/19 21:23 1,000 mg ONCE ONE Administration Medical Decision Making - Medical Decision Making 12/13/19 22:26 Cardiac work-up normal EKG normal no DVT follow-up with primary care physician recommended SANDI hose elevation follow-up with primary care as well as vascular I have reviewed the pathophysiology with the patient. They are in agreement with the treatment plan all questions were answered to their satisfaction. Understanding for follow-up without fail was also conveyed to the patient. A gain they are in agreement. Discharge - Discharge Information Problems reviewed: Yes Clinical Impression/Diagnosis: Edema Condition: Stable Disposition: HOME - Admission No - Follow up/Referral Referrals: Myron Palafox MD [Staff Physician] - Thor Jackson MD [Non Staff, Medical] - - Patient Discharge Instructions Additional Instructions: SANDI hose as discussed for compression. Elevate bilateral lower extremities as much as possible. Elevate above the level of the heart. Return to the emergency room for worsening symptoms. Without fail follow-up with your primary care physician as well as vascular surgery in 1 to 2 days for further evaluation and treatment options. - Post Discharge Activity
--- NOTE | 2019-12-14 10:53 | EKG ---
Test Reason : Blood Pressure : / mmHG Vent. Rate : 062 BPM Atrial Rate : 062 BPM P-R Int : 140 ms QRS Dur : 086 ms QT Int : 414 ms P-R-T Axes : 043 068 041 degrees QTc Int : 420 ms NORMAL SINUS RHYTHM WITH SINUS ARRHYTHMIA NORMAL ECG WHEN COMPARED WITH ECG OF 20-APR-2018 02:09, NO SIGNIFICANT CHANGE WAS FOUND Confirmed by Shan Jarvis MD ([id number]) on 12/14/2019 10:52:49 AM Referred By: Confirmed By:Shan Jarvis MD
[2019-12-16 04:07] LABS: CK-MM 100 % (97-100)
== END 2019-12-13 22:39 | disposition home or self-care (01) ==
LOC: JER 18:11
DX: R60.0 Localized edema (principal)
CPT/HCPCS: 36415; 80053; 80307; 82550; 82552; 82553; 83880; 84484; 85025; 85610; 85651; 86140; 93005; 93010; 93970-TC; 99285-25

== ENCOUNTER 2019-12-19 22:14 | Inpatient (IN) | payer OTHER ==
[2019-12-19 22:39] VITALS: BMI 26.4
--- NOTE | 2019-12-19 22:50 | HP ---
COWS - Scale Resting Pulse: 0= [place] 80 or Below Sweatin=Flushed/Facial Moisture Restless Observation: 0= Sits Still Pupil Size: 0= Normal to Room Light Bone or Joint Aches: 4=Acute Joint/Muscle Pain Runny Nose/ Eye Tearin= Runny Nose/Eyes GI Upset > 30mins: 0= None Tremor Observation: 2= Slight Tremor Visible Yawning Observation: 1= 1-2x During Session Anxiety or Irritability: 2=Irritable/Anxious Goose Flesh Skin: 3=Piloerection COWS Score: 16 CIWA Score - Admission Criteria OASAS Guidelines: Admission for Medically Managed Detox: Requires at least one of the followin. CIWA greater than 12 2. Seizures within the past 24 hours 3. Delirium tremens within the past 24 hours 4. Hallucinations within the past 24 hours 5. Acute intervention needed for co occurring medical disorder 6. Acute intervention needed for co occurring psychiatric disorder 7. Severe withdrawal that cannot be handled at a lower level of care (continued vomiting, continued diarrhea, abnormal vital signs) requiring intravenous medication and/or fluids 8. Admitting History and Physical - Smoking History Smoking history: Current every day smoker Have you smoked in the past 12 months: Yes Aproximately how many cigarettes per day: 20 - Alcohol/Substance Use Hx Alcohol Use: No Admission ROS [facility] - [facility] Chief Complaint: Seeking admission to detox from heroin Allergies/Adverse Reactions: Allergies Allergy/AdvReac Type Severity Reaction Status Date / Time diphenhydramine HCl Allergy Severe Swelling Verified 12/19/19 23:02 [From Benadryl] Penicillins Allergy Severe Rash Verified 12/19/19 23:02 History of Present Illness: 24 years old male with 6 years of heroin dependence is seeking admission to detox. His last admission was for the period 06/19/2018 - 06/23/2018 and he reports that he relapsed in November 2019. He reports medical history of asthma and he denies psych. history and suicidal ideation at this time. 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 He denies blackout and reports history of overdose. Patient is noted with bilateral leg swelling and he was evaluated at [facility] emergency room on 12/13/2019 where cardiac work-up was normal and EKG was normal. No DVT was noted and he was instructed to follow-up with his primary care physician. Also, SANDI hose and elevation of bilateral lower extremities was recommended. He is to follow-up with primary care provider as well as vascular as scheduled. Exam Limitations: No Limitations - Ebola screening Have you traveled outside of the country in the last 21 days: No Have you had contact with anyone from an Ebola affected area: No Have you been sick,other than usual withdrawal symptoms: No Do you have a fever: No - Review of Systems Constitutional: Chills, Loss of Appetite, Malaise, Night Sweats EENT: reports: Nose Congestion Respiratory: reports: No Symptoms reported Cardiac: reports: No Symptoms Reported GI: reports: Constipated, Nausea, Poor Appetite, Poor Fluid Intake, Abdominal cr amping : reports: No Symptoms Reported Musculoskeletal: reports: Back Pain, Joint Pain, Muscle Pain Integumentary: reports: Dryness, Flushing Neuro: reports: Tremors Endocrine: reports: No Symptoms Reported Hematology: reports: No Symptoms Reported Psychiatric: reports: Mood/Affect Appropiate, Orientated x3 Other Systems: Reviewed and Negative Patient History - Patient Medical History Hx Anemia: No Hx Asthma: Yes (used to be on albuterol inhaler) Hx Chronic Obstructive Pulmonary Disease (COPD): No Hx Cancer: No Hx Cardiac Disorders: No Hx Congestive Heart Failure: No Hx Hypertension: No Hx Hypercholesterolemia: No Hx Pacemaker: No HX Cerebrovascular Accident: No Hx Seizures: No Hx Dementia: No Hx Diabetes: No Hx Gastrointestinal Disorders: No Hx Liver Disease: No Hx Genitourinary Disorders: No Hx Sexually Transmitted Disorders: No Hx Renal Disease (ESRD): No Hx Thyroid Disease: No Hx Human Immunodeficiency Virus (HIV): No ( Negative 04/25) Hx Hepatitis C: No Hx Depression: No Hx Suicide Attempt: No (Denies suicidal ideation at this time) Hx Bipolar Disorder: No Hx Schizophrenia: No - Patient Surgical History Past Surgical History: No Hx Neurologic Surgery: No Hx Cataract Extraction: No Hx Cardiac Surgery: No Hx Lung Surgery: No Hx Abdominal Surgery: No Hx Appendectomy: No Hx Cholecystectomy: No Hx Genitourinary Surgery: No Hx Orthopedic Surgery: No Anesthesia Reaction: No - PPD History Previous Implant?: Yes Documented Results: Negative w/proof Implanted On Prior R Admission?: Yes Date: 04/15/18 Results: 0mm PPD to be Administered?: Yes - Reproductive History Patient is a Female of Child Bearing Age (11 -55 yrs old): No (Male) - Smoking Cessation Smoking history: Current every day smoker Have you smoked in the past 12 months: Yes Aproximately how many cigarettes per day: 20 Hx Chewing Tobacco Use: No Initiated information on smoking cessation: Yes 'Breaking Loose' booklet given: 12/19/19 - Substance & Tx. History Hx Alcohol Use: No Hx Substance Use: Yes Substance Use Type: Heroin, Opiates Hx Substance Use Treatment: Yes ([facility]) - Substances abused Heroin Substance route: Inhalation Frequency: Daily Amount used: 10 bags Age of first use: 18 Date of last use: 12/19/19 Admission Physical Exam [facility] - Vital Signs Vital Signs: Vital Signs - 24 hr 12/19/19 22:37 Temperature 97.2 F L Pulse Rate 78 Respiratory 18 Rate Blood Pressure 134/82 - Physical General Appearance: Yes: Moderate Distress, Tremorous, Irritable, Anxious HEENTM: Yes: Within Normal Limits Respiratory: Yes: Lungs Clear, Normal Breath Sounds, No Respiratory Distress Neck: Yes: Within Normal Limits Breast: Yes: Within Normal Limits Cardiology: Yes: Within Normal Limits Abdominal: Yes: Normal Bowel Sounds, Soft Genitourinary: Yes: Within Normal Limits Back: Yes: Normal Inspection Musculoskeletal: Yes: Back pain, Muscle Pain Extremities: Yes: Tremors, Other (bilateral leg sewlling) Neurological: Yes: Within Normal Limits Integumentary: Yes: Warm Lymphatic: Yes: Within Normal Limits - Diagnostic (1) Bilateral leg edema Current Visit: Yes Status: Chronic (2) Asthma Current Visit: Yes Status: Chronic Qualifiers: Asthma severity: mild Asthma persistence: intermittent Asthma complication type: uncomplicated Qualified Code(s): J45.20 - Mild intermittent asthma, uncomplicated (3) Eczema Current Visit: Yes Status: Chronic Qualifiers: Eczema type: unspecified Qualified Code(s): L30.9 - Dermatitis, unspecified Comment: feet (4) Nicotine dependence Current Visit: Yes Status: Chronic Qualifiers: Nicotine product type: cigarettes Substance use status: uncomplicated Qualified Code(s): F17.210 - Nicotine dependence, cigarettes, uncomplicated (5) Opioid dependence with withdrawal Current Visit: Yes Status: Acute Cleared for Admission [facility] - Detox or Rehab [facility] Level of Care: Medically Managed Detox Regimen/Protocol: Methadone Claeared for Rehab Admission: No Breathalyzer - Breathalyzer Breathalyzer: 0 Urine Drug Screen - Test Device Lot number: [id number] Expiration date: 07/13/21 - Control Is test valid?: Yes - Results Drug screen NEGATIVE: No Urine drug screen results: FEN-Fentanyl, MOP-Opiates, OXY-Oxycodone Inpatient Rehab Admission - Rehab Decision to Admit Inpatient rehab admission?: No
[2019-12-19] MEDS ORDERED: MENTHOL/PHENOL 1 EACH UD MM PRN (23:09)
[2019-12-19] MEDS ORDERED: BISMUTH SUBSALICYLATE 524 MG/30 ML UD PO PRN (23:09)
[2019-12-19] MEDS ORDERED: ONDANSETRON *ODT* 4 MG TABLET SL PRN (23:09)
[2019-12-19] MEDS ORDERED: ACETAMINOPHEN 325 MG TABLET (FP) PO PRN ×2 (23:09)
[2019-12-19] MEDS ORDERED: NICOTINE POLACRILEX 2 MG GUM BUC PRN (23:09)
[2019-12-19] MEDS ORDERED: MAG HYDROX/AL HYDROX/SIMETH 30 ML UNIT-DOSE CUP PO PRN (23:09)
[2019-12-19] MEDS ORDERED: MAGNESIUM HYDROX 2400MG/30ML ORAL SUSPENSION 30 ML CUP PO PRN (23:09)
[2019-12-19] MEDS ORDERED: MAGNESIUM CITRATE 300 ML BOTTLE PO PRN (23:09)
[2019-12-19] MEDS ORDERED: METHADONE HCL 10 MG TABLET (FOR DETOX USE ONLY) PO ONE (23:45)
[2019-12-20] MEDS: METHOCARBAMOL 500 MG TABLET PO PRN ×3 (01:03→18:30)
[2019-12-20] MEDS ORDERED: METHADONE HCL 10 MG TABLET (FOR DETOX USE ONLY) ONE (08:53)
[2019-12-20] MEDS ORDERED: METHADONE HCL 5 MG TABLET (FOR DETOX USE ONLY) ONE (08:54)
[2019-12-20] MEDS: cloNIDine HCL 0.1 MG TABLET PO PRN (09:51)
[2019-12-20] MEDS: NICOTINE 14 MG/24 HOURS TOPICAL PATCH TD SCH (09:51)
[2019-12-20] MEDS: PRENATAL VITAMINS W/ FOLIC ACID TABLET (FP) PO SCH (09:51)
[2019-12-20] MEDS ORDERED: METHADONE (DETOX) 20 MG, METHADONE (DETOX) 5 MG PO ONE (10:00)
[2019-12-20 10:57] LABS: HEMATOCRIT 38.9 % (35.4-49); MCH 30.5 pg (25.7-33.7); MCHC 33.5 g/dl (32.0-35.9); MEAN CELL VOLUME 91.3 fl (80-96); MEAN PLT VOLUME 10.3 fl (7.5-11.1); PLATELET COUNT 207 K/MM3 (134-434); RBC 4.26 M/mm3 (4.00-5.60); RDW 13.3 % (11.9-15.9); WHITE BLOOD COUNT 7.1 K/mm3 (4.0-10.0)
[2019-12-20 11:16] LABS: POTASSIUM 3.9 mmol/L (3.5-5.1)
[2019-12-20 11:26] LABS: ALBUMIN 3.1 g/dl (3.4-5.0); BILIRUBIN,TOTAL 0.5 mg/dL (0.2-1); BLOOD UREA NITROGEN 12.6 mg/dL (7-18); CALCIUM 8.7 mg/dL (8.5-10.1); CREATININE 0.8 mg/dL (0.55-1.3); TOT PROT 5.8 g/dl (6.4-8.2)
--- NOTE | 2019-12-20 11:43 | EKG ---
Test Reason : Blood Pressure : / mmHG Vent. Rate : 063 BPM Atrial Rate : 063 BPM P-R Int : 142 ms QRS Dur : 078 ms QT Int : 418 ms P-R-T Axes : 026 057 030 degrees QTc Int : 427 ms NORMAL SINUS RHYTHM NORMAL ECG WHEN COMPARED WITH ECG OF 13-DEC-2019 22:19, NO SIGNIFICANT CHANGE WAS FOUND Confirmed by JOSE ALBERTO VALDES MD ([id number]) on 12/20/2019 11:42:55 AM Referred By: Piter CASPER Confirmed By:JOSE ALBERTO VALDES MD
--- NOTE | 2019-12-20 12:10 | PN ---
BHS COWS - Scale Resting Pulse: 0= [place] 80 or Below Sweatin= Chills/Flushing Restless Observation: 0= Sits Still Pupil Size: 1= Pupils >than Normal Bone or Joint Aches: 1= Mild Discomfort Runny Nose/ Eye Tearin= None GI Upset > 30mins: 2= Nausea/Diarrhea Tremor Observation of Outstretched Hands: 2= Slight Tremor Visible Yawning Observation: 0= None Anxiety or Irritability: 2=Irritable/Anxious Goose Flesh Skin: 3=Piloerection COWS Score: 12 BHS Progress Note (SOAP) Subjective: 24 years old male was admitted on 12/19/19 for opiate withdrawal sx management treating with methadone detox regiment feels tired wish to sleep longer in bed limited conversation with staff Objective: 12/20/19 12:10 Vital Signs - 24 hr 12/19/19 12/19/19 12/20/19 22:37 23:23 00:05 Temperature 97.2 F L 97.2 F L 97.1 F L Pulse Rate 78 78 63 Respiratory 18 18 18 Rate Blood Pressure 134/82 134/82 135/85 O2 Sat by Pulse 97 Oximetry (%) 12/20/19 12/20/19 05:05 09:05 Temperature 97.0 F L 97.5 F L Pulse Rate 60 69 Respiratory 18 18 Rate Blood Pressure 103/52 L 96/52 L O2 Sat by Pulse 98 Oximetry (%) Laboratory Tests 12/20/19 12/20/19 12/20/19 07:40 07:40 07:40 WBC 7.1 RBC 4.26 Hgb 13.0 Hct 38.9 MCV 91.3 MCH 30.5 MCHC 33.5 RDW 13.3 Plt Count 207 MPV 10.3 Sodium 139 Potassium 3.9 Chloride 106 Carbon Dioxide 29 Anion Gap 5 L BUN 12.6 Creatinine 0.8 Est GFR (CKD-EPI)AfAm 143.90 Est GFR (CKD-EPI)NonAf 124.16 Random Glucose 85 Calcium 8.7 Total Bilirubin 0.5 AST 76 H ALT 64 H Alkaline Phosphatase 72 Total Protein 5.8 L Albumin 3.1 L Syphilis Serology Non-reactive covid pending Assessment: 12/20/19 12:10 opiate withdrawal Plan: methadone regiment
[2019-12-20] MEDS: TRIAMCINOLONE ACET 0.1% OINT 15 GM TUBE TP SCH ×2 (18:29→22:41)
[2019-12-20] MEDS: THIAMINE HCL 100 MG TABLET (FP) PO SCH (22:41)
[2019-12-20] MEDS: MELATONIN 5 MG TABLETS PO SCH (22:42)
[2019-12-21] MEDS ORDERED: METHADONE HCL 10 MG TABLET (FOR DETOX USE ONLY) PO ONE (10:00)
[2019-12-21] MEDS: METHOCARBAMOL 500 MG TABLET PO PRN ×2 (10:49→18:30)
[2019-12-21] MEDS: PRENATAL VITAMINS W/ FOLIC ACID TABLET (FP) PO SCH (10:49)
[2019-12-21] MEDS: NICOTINE 14 MG/24 HOURS TOPICAL PATCH TD SCH (10:49)
[2019-12-21] MEDS: IBUPROFEN 400 MG TABLET (FP) PO PRN ×2 (10:49→23:41)
[2019-12-21] MEDS: cloNIDine HCL 0.1 MG TABLET PO PRN (10:49)
[2019-12-21] MEDS: TRIAMCINOLONE ACET 0.1% OINT 15 GM TUBE TP SCH ×4 (12:18→22:11)
--- NOTE | 2019-12-21 12:54 | PN ---
BHS COWS - Scale Resting Pulse: 0= [place] 80 or Below Sweatin= Chills/Flushing Restless Observation: 0= Sits Still Pupil Size: 1= Pupils >than Normal Bone or Joint Aches: 1= Mild Discomfort Runny Nose/ Eye Tearin= Nasal Congestion GI Upset > 30mins: 1= Stomach Cramp Tremor Observation of Outstretched Hands: 1= Tremor [place], Not Seen Yawning Observation: 1= 1-2x During Session Anxiety or Irritability: 1=Feels Anxious/Irritable Goose Flesh Skin: 0=Smooth Skin COWS Score: 8 BHS Progress Note (SOAP) Subjective: 24 YEARS OLD MALE WAS ADMITTED ON 12/19/19 FOR OPIATE WITHDRAWAL SX MANAGEMENT TREATING WITH METHADONE DETOX REGIMENT BODY ACHES JOINTS PAIN MUSCLE CRAMPING Objective: 12/21/19 12:55 Vital Signs - 24 hr 12/20/19 12/20/19 12/20/19 13:00 16:55 20:38 Temperature 97.3 F L 96.8 F L 97.5 F L Pulse Rate 70 79 56 L Respiratory 18 18 18 Rate Blood Pressure 99/54 L 106/73 96/61 O2 Sat by Pulse 99 99 Oximetry (%) 12/21/19 12/21/19 09:00 09:38 Temperature 96.1 F L Pulse Rate 72 Respiratory 20 Rate Blood Pressure 100/60 O2 Sat by Pulse 98 98 Oximetry (%) LOW BP DISCONTINUE CLONIDINE BEGIN VALIUM PRN 12/21/19 13:01 Laboratory Tests 12/20/19 12/20/19 12/20/19 00:52 07:40 07:40 WBC 7.1 RBC 4.26 Hgb 13.0 Hct 38.9 MCV 91.3 MCH 30.5 MCHC 33.5 RDW 13.3 Plt Count 207 MPV 10.3 Sodium Potassium Chloride Carbon Dioxide Anion Gap BUN Creatinine Est GFR (CKD-EPI)AfAm Est GFR (CKD-EPI)NonAf Random Glucose Calcium Total Bilirubin AST ALT Alkaline Phosphatase Total Protein Albumin Syphilis Serology Non-reactive COVID-19 (INES) Not detected 12/20/19 07:40 WBC RBC Hgb Hct MCV MCH MCHC RDW Plt Count MPV Sodium 139 Potassium 3.9 Chloride 106 Carbon Dioxide 29 Anion Gap 5 L BUN 12.6 Creatinine 0.8 Est GFR (CKD-EPI)AfAm 143.90 Est GFR (CKD-EPI)NonAf 124.16 Random Glucose 85 Calcium 8.7 Total Bilirubin 0.5 AST 76 H ALT 64 H Alkaline Phosphatase 72 Total Protein 5.8 L Albumin 3.1 L Syphilis Serology COVID-19 (INES) LAB NOTED Assessment: 12/21/19 13:02 OPIATE WITHDRAWAL 12/21/19 13:02 VALIUM PRN Plan: METHADONE REGIMENT
[2019-12-21] MEDS: diazePAM 5 MG TABLET PO PRN ×2 (18:30→22:12)
[2019-12-21] MEDS: THIAMINE HCL 100 MG TABLET (FP) PO SCH (22:12)
[2019-12-21] MEDS: MELATONIN 5 MG TABLETS PO SCH (22:12)
[2019-12-22] MEDS ORDERED: METHADONE (DETOX) 10 MG, METHADONE (DETOX) 5 MG PO ONE (10:00)
[2019-12-22] MEDS ORDERED: METHADONE HCL 10 MG TABLET (FOR DETOX USE ONLY) ONE (10:04)
[2019-12-22] MEDS ORDERED: METHADONE HCL 5 MG TABLET (FOR DETOX USE ONLY) ONE (10:04)
[2019-12-22] MEDS: PRENATAL VITAMINS W/ FOLIC ACID TABLET (FP) PO SCH (10:41)
[2019-12-22] MEDS: TRIAMCINOLONE ACET 0.1% OINT 15 GM TUBE TP SCH ×4 (10:41→22:23)
[2019-12-22] MEDS: NICOTINE 14 MG/24 HOURS TOPICAL PATCH TD SCH (10:41)
[2019-12-22] MEDS: METHOCARBAMOL 500 MG TABLET PO PRN ×2 (10:41→18:16)
[2019-12-22] MEDS: diazePAM 5 MG TABLET PO PRN ×3 (10:42→22:23)
--- NOTE | 2019-12-22 12:58 | PN ---
BHS COWS - Scale Resting Pulse: 0= [place] 80 or Below Sweatin= No chills or Flushing Restless Observation: 0= Sits Still Pupil Size: 1= Pupils >than Normal Bone or Joint Aches: 2= Severe Diffuse Aches Runny Nose/ Eye Tearin= None GI Upset > 30mins: 1= Stomach Cramp Tremor Observation of Outstretched Hands: 1= Tremor [place], Not Seen Yawning Observation: 0= None Anxiety or Irritability: 1=Feels Anxious/Irritable Goose Flesh Skin: 0=Smooth Skin COWS Score: 6 BHS Progress Note (SOAP) Subjective: 24 years old male was admitted on 12/19/19 for opiate withdrawal sx management treating with methadone detox regiment muscle cramping received one dose of robaxin encourage to merchandise pickup/receiving associate narcan from pharmacy upon discharge Objective: 12/22/19 13:00 Vital Signs - 24 hr 12/21/19 12/21/19 12/22/19 16:54 20:22 06:32 Temperature 97.1 F L 97.3 F L 97.2 F L Pulse Rate 57 L 77 79 Respiratory 20 18 18 Rate Blood Pressure 99/61 103/55 L 105/55 L O2 Sat by Pulse 97 98 100 Oximetry (%) 12/22/19 08:35 Temperature 97.8 F Pulse Rate 49 L Respiratory 16 Rate Blood Pressure 112/72 O2 Sat by Pulse Oximetry (%) Laboratory Tests 12/20/19 12/20/19 12/20/19 00:52 07:40 07:40 WBC 7.1 RBC 4.26 Hgb 13.0 Hct 38.9 MCV 91.3 MCH 30.5 MCHC 33.5 RDW 13.3 Plt Count 207 MPV 10.3 Sodium Potassium Chloride Carbon Dioxide Anion Gap BUN Creatinine Est GFR (CKD-EPI)AfAm Est GFR (CKD-EPI)NonAf Random Glucose Calcium Total Bilirubin AST ALT Alkaline Phosphatase Total Protein Albumin Syphilis Serology Non-reactive COVID-19 (INES) Not detected 12/20/19 07:40 WBC RBC Hgb Hct MCV MCH MCHC RDW Plt Count MPV Sodium 139 Potassium 3.9 Chloride 106 Carbon Dioxide 29 Anion Gap 5 L BUN 12.6 Creatinine 0.8 Est GFR (CKD-EPI)AfAm 143.90 Est GFR (CKD-EPI)NonAf 124.16 Random Glucose 85 Calcium 8.7 Total Bilirubin 0.5 AST 76 H ALT 64 H Alkaline Phosphatase 72 Total Protein 5.8 L Albumin 3.1 L Syphilis Serology COVID-19 (INES) lab noted Assessment: 12/22/19 13:01 opiate withdrawal Plan: methadone regiment
[2019-12-22] MEDS: MELATONIN 5 MG TABLETS PO SCH (22:23)
[2019-12-22] MEDS: THIAMINE HCL 100 MG TABLET (FP) PO SCH (22:23)
[2019-12-23] MEDS: PRENATAL VITAMINS W/ FOLIC ACID TABLET (FP) PO SCH (09:54)
[2019-12-23] MEDS: diazePAM 5 MG TABLET PO PRN ×2 (09:54→18:12)
[2019-12-23] MEDS: NICOTINE 14 MG/24 HOURS TOPICAL PATCH TD SCH (09:55)
[2019-12-23] MEDS: TRIAMCINOLONE ACET 0.1% OINT 15 GM TUBE TP SCH ×3 (09:55→19:22)
[2019-12-23] MEDS ORDERED: METHADONE HCL 10 MG TABLET (FOR DETOX USE ONLY) PO ONE (10:00)
--- NOTE | 2019-12-23 11:57 | PN ---
S CIWA - CIWA Score Nausea/Vomitin-Mild Nausea/No Vomiting Muscle Tremors: 2 Anxiety: 2 Agitation: 2 Paroxysmal Sweats: No Perspiration Orientation: 0-Oriented Tacttile Disturbances: 0-None Auditory Disturbances: 0-None Visual Disturbances: 0-None Headache: 1-Very Mild CIWA-Ar Total Score: 8 BHS Progress Note (SOAP) Subjective: alert,irritable,anxious,interrupted sleep,aching pain Objective: 12/23/19 16:42 Vital Signs Temperature 97.3 F L 12/23/19 12:54 Pulse Rate 80 12/23/19 12:54 Respiratory Rate 18 12/23/19 12:54 Blood Pressure 116/70 12/23/19 12:54 O2 Sat by Pulse Oximetry (%) 98 12/23/19 12:54 Assessment: 12/23/19 16:42 withdrawal symptom Plan: continue detox methadone regimen,discharge in am
[2019-12-23] MEDS: METHOCARBAMOL 500 MG TABLET PO PRN (14:20)
[2019-12-23 18:29] VITALS: BP 99/61; PULSE 64; TEMP 98.6
--- NOTE | 2019-12-23 19:14 | DS ---
[facility] Detox Discharge Summary Admission Date: 12/19/19 - History Additional Comments: pt claims he has a flight to catch early in the morning , going to [place] and must leave immediately . Declines to stay . Pt was educated about the risk of leaving prior to completion of treatment for opiate detox . Verbalizes understanding and indicates that he wished to proceed with discharge. Vital Signs - 24 hr 12/22/19 12/23/19 12/23/19 20:41 06:21 08:32 Temperature 99.1 F 96.9 F L 97.1 F L Pulse Rate 57 L 82 82 Respiratory 18 18 18 Rate Blood Pressure 96/53 L 98/61 113/74 O2 Sat by Pulse 99 97 Oximetry (%) 12/23/19 12/23/19 12:54 16:38 Temperature 97.3 F L 98.6 F Pulse Rate 80 64 Respiratory 18 17 Rate Blood Pressure 116/70 99/61 O2 Sat by Pulse 98 Oximetry (%) Active Medications Acetaminophen (Tylenol -) 650 mg PO Q6H PRN PRN Reason: PAIN LEVEL 4 - 6 Acetaminophen (Tylenol -) 650 mg PO Q6H PRN PRN Reason: FEVER Al Hydroxide/Mg Hydroxide (Mylanta Oral Suspension -) 30 ml PO Q6H PRN PRN Reason: DYSPEPSIA Bismuth Subsalicylate (Pepto-Bismol -) 524 mg PO Q1H PRN PRN Reason: DIARRHEA Diazepam (Valium -) 5 mg PO Q6H PRN PRN Reason: WITHDRAWAL(CONT SUBST) Stop: 12/24/19 00:05 Last Admin: 12/23/19 18:12 Dose: 5 mg Documented by: Eucalyptus/Menthol/Phenol/Sorbitol (Cepastat Lozenge -) 1 each MM Q4H PRN PRN Reason: SORE THROAT Stop: 12/25/19 23:09 Ibuprofen (Motrin -) 400 mg PO Q6H PRN PRN Reason: PAIN LEVEL 1 - 3 Last Admin: 12/21/19 23:41 Dose: 400 mg Documented by: Magnesium Citrate (Citroma -) 300 ml PO Q48H PRN PRN Reason: CONSTIPATION Magnesium Hydroxide (Milk Of Magnesia -) 30 ml PO PRN PRN PRN Reason: CONSTIPATION Melatonin (Melatonin) 5 mg PO [facility] Last Admin: 12/22/19 22:23 Dose: 5 mg Documented by: Methadone HCl (Dolophine -) 5 mg PO ONCE@0600 ONE Stop: 12/24/19 06:01 Methocarbamol (Robaxin -) 500 mg PO Q6H PRN PRN Reason: MUSCLE SPASMS Stop: 12/25/19 23:09 Last Admin: 12/23/19 14:20 Dose: 500 mg Documented by: Nicotine (Nicoderm Patch -) 14 mg TD DAILY [facility] Last Admin: 12/23/19 09:55 Dose: 14 mg Documented by: Nicotine Polacrilex (Nicorette Gum -) 2 mg BUC Q2H PRN PRN Reason: NICOTINE REPLACEMENT RX Ondansetron HCl (Zofran Odt -) 4 mg SL Q8H PRN PRN Reason: Nausea/Vomiting Multivit/Folic Acid/Iron ( Vitamins (Sjr) -) 1 tab PO DAILY [facility] Last Admin: 12/23/19 09:54 Dose: 1 tab Documented by: Thiamine HCl (Vitamin B1 -) 100 mg PO HS [facility] Last Admin: 12/22/19 22:23 Dose: 100 mg Documented by: Triamcinolone Acetonide (Aristocort 0.1% Ointment -) 1 applic TP QID [facility] Last Admin: 12/23/19 14:19 Dose: Not Given Documented by: - Physical Exam Results Vital Signs: Vital Signs Temperature 98.6 F 12/23/19 16:38 Pulse Rate 64 12/23/19 16:38 Respiratory Rate 17 12/23/19 16:38 Blood Pressure 99/61 12/23/19 16:38 O2 Sat by Pulse Oximetry (%) 98 12/23/19 12:54 - Treatment Hospital Course: Detox Protocol Followed, Detoxed Safely - Medication Discharge Medications: Ambulatory Orders Naloxone HCl [Narcan] 4 mg NS ASDIR PRN #1 spray 12/22/19 - AMA Did Patient Leave Against Medical Advice: Yes
[2019-12-24] MEDS ORDERED: METHADONE HCL 5 MG TABLET (FOR DETOX USE ONLY) PO ONE (06:00)
== END 2019-12-23 19:32 | disposition left against medical advice (07) | DRG 770 ==
LOC: YASAS 22:14 → Y3N 23:13
PROVIDERS: ADMIT Allergy & Immunology; ATTEND Allergy & Immunology
PROC: HZ2ZZZZ Detoxification Services for Substance Abuse Treatment (ICD-10-PCS; principal; 2019-12-19)
DX: F11.23 Opioid dependence with withdrawal (principal); F17.210 Nicotine dependence, cigarettes, uncomplicated; J45.20 Mild intermittent asthma, uncomplicated; L30.9 Dermatitis, unspecified; R60.0 Localized edema; Z88.0 Allergy status to penicillin; Z88.8 Allergy status to other drugs, medicaments and biological substances
CPT/HCPCS: 36415; 80053; 85027; 86780; 93005; 93010; J0735; U0003